=== PATIENT | female | born 1945 | race Caucasian/White ===

== ENCOUNTER → 2017-08-06 | Outpatient (CLI) | payer MEDICARE, OTHER ==
[~2017-08-06] MED LIST: ALLEGRA180 MG PO; AMITRIPTYLINE H10 M1 PO; ARIMIDEX PO; ASPIR 8181 MG PO; ATORVASTATIN CA40 MG PO; BAYER CHEWABLE81 MG PO; CALCIUM 500 +1 EAC4; CALCIUM 600 +1 EA11 PO; CELEBREX 200 M200 M1 PO; CELEBREX 200 M200 MG PO; CYMBALTA60 MG PO; DIPHENHIST25 MG PO; DURAGESIC1 EAC2 TOP; DURAGESIC25 MCG/HR TRANSDERM; Duragesic 25 mcg Pat TRANSDERM; ECHINACEA167 MG; ECHINACEA500 MG PO; ELAVIL PO; FENTANYL PA25 MCG/HR TP; FENTANYL PA25 MCG/HR TRANSDERM; FISH OIL 1,2001 EAC4 PO; FISH OIL SOFTG1 EACH; FLAXSEED1000 MG PO; FLEXERIL PO; FUROSEMIDE 20 M20 M1 PO; GARLIC OIL1 EACH PO; GARLIC OIL1000 MG PO; GINKGO BILOBA120 MG PO; HYDROCHLOROTHIA25 M1 PO; HYDROCODON-ACE1 EAC5 PO; HYDROCODON-ACE1 EAC7 PO; HYDROCODON-ACE1 EAC8 PO; HYDROCODONE-AP1 EAC6 PO; KLOR-CON 10 ER10 MEQ PO; LISINOPRIL20 MG PO; LOPRESSOR25 PO; MOBIC15 MG PO; MULTIVITAMINS; MULTIVITAMINS PO; NEURONTIN 300300 M1 PO; NEURONTIN600 MG PO; NITROGLYCERIN0.4 MG SUBLING; NORCO 10-325 T1 EACH PO; PLAVIX 75 MG TA75 M1 PO; PLAVIX 75 MG TA75 MG PO; POTASSIUM GLUCO90 MG; PRILOSEC 20 MG20 MG PO; TOPROL XL100 MG PO; TRAMADOL 50 MG50 MG PO; VITAMIN D31000 UNI2 PO; VITAMIN E400 UNIT PO; VITAMINC500 PO; VITCB500GO PO; VOLTAREN100 GM TP; XALATAN2.5 ML OPHTHALMIC
--- NOTE | 2017-08-08 09:59 | PAINCON ---
[address] [address] PAIN MANAGEMENT CONSULTATION Name: MONA MIXON Room: [facility]#: [id number] Admission: 08/06/17 Attend Phys: Renetta Nair Discharge: Date of : 47 Report #: [id number] THIS REPORT FOR: //name// CC: Aniya Cardozo DATE OF SERVICE: 08/06/2017 The patient is a 72-year-old female being treated for lumbar radiculopathy status post decompressive laminectomy, chronic pain syndrome requiring high risk complex medication management. Comorbidities include atherosclerotic peripheral vascular disease, coronary artery disease, status post endovascular stent, on Plavix; and osteoporosis. Last visit 06/11/2017, the patient was continued on baseline medication including Duragesic 25 mcg q.72 hours and hydrocodone 5/325 one tablet 3-4 times a day, limit 100 tablets for 30 days. We reviewed the fact that opiate medications are being used to provide analgesia adequate to support activities of daily living, not attempting to achieve a specific pain score on the 0-10 Visual Analog Scale. The current opiate medications are providing sufficient analgesia to allow the patient to participate in activities of daily living. The patient is not exhibiting any aberrant behavior suggestive of drug diversion. The patient is not having any adverse reactions to medications. The patient is not suffering from daytime somnolence or mental acuity changes. The patient is managing opiate-induced constipation with appropriate ffdt-bll-xzbtoav agents and dietary considerations. The patient was counseled on concern for caution with operating a motor vehicle while using opiate medications. A physical exam was performed and the patient's functional status was evaluated. All patients with back pain were advised against the bed rest greater than 4 days and were advised to return to normal activities. Pain score assessment was noted and the treatment plan was reviewed with the patient. All current medications, both prescribed and OTC were reviewed and reconciled on the electronic medical record. Tobacco screening was accomplished and smoking cessation was advised when indicated. BMI was noted and diet/exercise modification was recommended for all patients following outside normal parameters. I reviewed with the patient today their responsibilities to safeguard prescription medications, reviewed their responsibility to utilize medications only as prescribed by the physician. They are to seek and receive pain medications only from 1 physician group ( [facility]). They are to use 1 pharmacy and keep the clinic informed if they change pharmacies. Their responsibilities include making followup visits in a timely [place] [address] PAIN MANAGEMENT CONSULTATION Name: MONA MIXON Room: [facility]#: [id number] Admission: 08/06/17 Attend Phys: Renetta Nair Discharge: Date of : 47 Report #: [id number] abrupt discontinuation of medication usage. Their responsibilities further include bringing their medications (bottles from the pharmacy with residual pills) to the visit for possible confirmation of pill counts and the patient understands it is their responsibility to submit to random drug screens to ensure both that the medications prescribed are present, and that no other controlled substances are present. All prescriptions provided today were generated electronically. The patient returns to pain clinic today noting her is terminally ill. He is currently on hospice at home. With increased physical activity caring for him, changing his adult diapers and trying to care for some sacral decubiti, physical activity has increased and pain has increased somewhat, though she rates her pain 4 on a VAS. PHYSICAL EXAMINATION: Relatively unchanged, pleasant 72-year-old female, appearing somewhat younger than stated age, 5 feet 4 inches, 161 pounds, BMI is 27.8 kg/m2, blood pressure 166/37, pulse is 54, respirations 16. Alert and oriented to person, place and time, judged to be a reasonable historian. Notes pain is primarily low back, left greater than right leg and right hip. Rises from chair using armrest. Gait is modestly antalgic, though tandem. Lower extremity strength is generally symmetric. Modestly positive straight leg raise on the left. Diffuse tenderness across the low back. No discrete trigger points are noted. ASSESSMENT: Lumbar radiculopathy status post decompressive laminectomy, chronic pain syndrome requiring high risk complex medication management. The patient is anticoagulated on Plavix secondary to coronary artery disease. She does take Celebrex 200 mg once daily. She assures me that she has consulted with her cleat maker and he is aware that she is taking Celebrex and he is "okay" with her using this agent concurrent with the coronary artery disease and Plavix. Otherwise, we will renew the patient's tramadol 50 mg 1 tablet 3-4 times a day, limit 100 tablets for 30 days; renew hydrocodone 5/325 one tablet 2-3 times a day, limit 75 tablets. Renew Duragesic 25 mcg q.72 hours. We will renew gabapentin 600 mg 1 in the morning and 2 at night. Discharged in good and stable condition. We did get a buccal drug swab today. No aberrant behavior suggestive for drug diversion, simply complying with our opiate consent to treat contract. <ELECTRONICALLY SIGNED> By: Landon Cardozo, 08/08/17 0959 0930 [facility] Hospitalcindy Cardozo DO /nt
== END ==
LOC: M.PC 02:31
DX: M54.16 Radiculopathy, lumbar region (principal); G89.4 Chronic pain syndrome; I73.89 Other specified peripheral vascular diseases; I25.10 Atherosclerotic heart disease of native coronary artery without angina pectoris; M81.0 Age-related osteoporosis without current pathological fracture; Z79.899 Other long term (current) drug therapy; Z95.828 Presence of other vascular implants and grafts; Z98.890 Other specified postprocedural states; Z79.01 Long term (current) use of anticoagulants

== ENCOUNTER 2017-09-30 19:55 | Observation (INO) | payer MEDICARE, OTHER ==
[~2017-09-30] VITALS: Ht 160 cm; Wt 72.1 kg
[~2017-09-30 19:55] MED LIST changes: -Duragesic 25 mcg Pat TRANSDERM; -LOPRESSOR25 PO; -XALATAN2.5 ML OPHTHALMIC
[2017-09-30 20:15] VITALS: BP 208/79
[2017-09-30 20:50] LABS: ABSOLUTE EOSINOPHILS 0.1 thou/uL (0.0-0.7); ABSOLUTE LYMPHOCYTES 1.4 thou/uL (0.8-5.3); ABSOLUTE MONOCYTES 0.4 thou/uL (0.0-1.2); BASOPHILS 0.4 %; EOSINOPHILS 2.1 %; HEMATOCRIT 37.9 % (37.0-47.0); HEMOGLOBIN 12.9 gm/dL (12.0-15.0); LYMPHOCYTES 34.9 %; MCH 31.3 pg (26.0-34.0); MCV 91.9 fL (80.0-100.0); MONOCYTES 10.2 %; MPV 7.5 fl. (7.2-11.1); NUCLEATED RBCS 0 /100WBC; PLATELET COUNT* 161 thou/uL (150-400); POLYS 52.4 %; RBC 4.12 mil/uL (4.20-5.00); RDW-CV 14.6 % (10.5-14.5); WBC 3.9 thou/uL (4.0-11.0)
[2017-09-30 21:00] LABS: ANION GAP 11 mmol/L (7-16); BUN 14 mg/dL (7-18); CHLORIDE 103 mmol/L (98-107); CO2 28 mmol/L (21-32); CREATININE 0.8 mg/dL (0.6-1.3); GLUCOSE 98 mg/dL (70-99); POTASSIUM 3.8 mmol/L (3.5-5.1); SODIUM 142 mmol/L (136-145)
[2017-09-30 21:04] LABS: APTT 26.9 Seconds (25.0-31.3); INR 1.2; PROTIME 11.2 Seconds (9.20-11.50)
[2017-09-30 21:11] LABS: ALBUMIN 3.8 g/dL (3.4-5.0); ALKALINE PHOSPHATASE 54 U/L (46-116); NT-PRO BRAIN NAT PEPTIDE 1367 pg/mL (<300); SGOT 27 U/L (15-37); SGPT 38 U/L (30-65); TOTAL BILIRUBIN 0.8 mg/dL (<0.1-1.0); TOTAL PROTEIN 7.2 g/dL (6.4-8.2); TROPONIN-I LEVEL <0.06 ng/mL (<0.06)
[2017-09-30 21:51] VITALS: BP 169/68
[2017-09-30 22:15] VITALS: BP 175/64
[2017-09-30] MEDS ORDERED: XALATAN2.5 ML OPHTHALMIC (22:26)
[2017-10-01] VITALS: BP 166/73
--- NOTE | 2017-10-01 03:33 | NUR ---
ASSUMED PT CARE AT 2214, PT IS A&OX4, PT WAS ADMITTED FOR CHEST PAIN, PT TOOK ONE NITRO AT HOME WITH START OF MIDSTERNAL CHEST OAIN/PRESSURE. THIS RELIEVED THE PAIN, PT CAME TO ER, NO PAIN AND WAS ADMITTED. PT IS TRACING NSR/SB ON THE MONITOR, ON RA,SATTING MID TO HIGH 90'S. PT IS NPO AT THIS TIME FOR PENDING CARDIOLOGY CONSULT. PT IS UP WITH ONE TO THE BR WITH HER CANE FROM HOME. SOME HOME MEDICATIONS RETSARTED PER PT REQUEST. PRN HYDRALIZINE GIVEN PER SEP. BED IN LOW POSITION, CALL LIGHT IN REACH, BED ALARM ON. HOURLY ROUNDING COMPLETED FOR PT SAFETY.
[2017-10-01 04:00] VITALS: BP 134/62
[2017-10-01 08:00] VITALS: BP 135/78
[2017-10-01 09:02] LABS: CHOLESTEROL 146 mg/dL (<200); HDL CHOLESTEROL 69 mg/dL (>40); LDL CHOLESTEROL 60 mg/dL (<100); TC:HDL 2.1 Ratio (Not establshd); TRIGLYCERIDE 86 mg/dL (<150); VLDL 17 mg/dL (<40)
[2017-10-01 09:03] LABS: SERUM ASSESSMENT Clear
--- NOTE | 2017-10-01 10:45 | EKG ---
[place] [address] ELECTROCARDIOGRAM REPORT Name: MONA MIXON Room: [address] ADM IN .R.#: [id number] Admission: 09/30/17 Attend Phys: Day Villa MD Discharge: Date of : 47 Report #: [id number] THIS REPORT FOR: //name// [facility] ED Test Date: 2017-09-30 Test Time: 19:59:14 Pat Name: MONA MIXON Department: Room: [facility] Gender: F Package Car Driver: STANLEY : 1945 Requested By: Aurea Kimble Order Number: [id number] MD: Kaushal José Measurements Intervals [place] Rate: 60 P: 77 FL: 145 QRS: 35 QRSD: 119 T: 63 QT: 460 QTc: 460 Interpretive Statements Sinus rhythm Ventricular bigeminy Left ventricular hypertrophy Nonspecific T abnrm, anterolateral leads Compared to ECG 07/25/2016 13:05:11 Ventricular premature complex(es) now present Electronically Signed On 10-01-2017 10:45:35 GM MOBILE by Kaushal José [email or web address] <ELECTRONICALLY SIGNED> By: Kaushal José MD, [facility] 10/01/17 1045 58 58 Kaushal José MD, [facility] /EPI
--- NOTE | 2017-10-01 10:46 | EKG ---
[place] [address] ELECTROCARDIOGRAM REPORT Name: MONA MIXON Room: [address] ADM IN .R.#: [id number] Admission: 09/30/17 Attend Phys: Day Villa MD Discharge: Date of : 47 Report #: [id number] THIS REPORT FOR: //name// [facility] ED Test Date: 2017-09-30 Test Time: 21:59:15 Pat Name: MONA MIXON Department: Room: [facility] Gender: Senior Database Engineer: HOWIE Ann : 1945 Requested By: Siva Lauren Order Number: [id number] MD: Kaushal José Measurements Intervals [place] Rate: 48 P: 105 FL: 156 QRS: 32 QRSD: 98 T: 105 QT: 510 QTc: 456 Interpretive Statements Sinus rhythm Ventricular trigeminy Probable left atrial enlargement RSR' in V1 or V2, probably normal variant LVH w/ repol abnormalities, possible ischemia Electronically Signed On 10-01-2017 10:46:42 DIRECTOR OF STRATEGIC MARKETING by Kaushal José [email or web address] <ELECTRONICALLY SIGNED> By: Kaushal José MD, FAC 10/01/17 1046 2159 2159 Kaushal José MD, [facility] /EPI
[2017-10-01 11:43] VITALS: BP 134/71
--- NOTE | 2017-10-01 12:06 | NUR ---
ASSUMED CARE OF PATIENT THIS AM AT 0730. PATIENT IS ALERT AND ORIENTED X 4. SHE DENIES CHEST PAIN THIS AM. PATIENT KEPT NPO FOR CARDIOLOGY CONSULT. CARDIOLOGY IN TO ROUND THIS AM. ORDERS WRITTEN TO HAVE A STRESS TEST TODAY. PATIENT IS RESTING AT THIS TIME. TELE SHOWS SINUS MARY WITH BIGEMINY PVCS.
--- NOTE | 2017-10-01 12:20 | NUR ---
MET WITH PT TO DISCUSS HOME SITUATION/DC PLANNING. PT LIVES ALONE. HER SPOUSE SEP 01. FACE SHEET UPDATED. PT STATES HER CHILDREN ARE SUPPORTIVE. PT IS INDEPENDENT, USES NO EQUIPMENT. DENIES ANY DC NEEDS. WILL FOLLOW
--- NOTE | 2017-10-01 16:10 | CARDNUC ---
[place] [address] CARDIAC NUCLEAR IMAGING REPORT Name: MONA MIXON Room: [address] IN [facility]#: [id number] Admission: 09/30/17 Attend Phys: Day Villa, Discharge: Date of : 47 Date of Service: 10/01/17 1609 Report #: [id number] THIS REPORT FOR: //name// APPROVED REPORT Exam: Nuclear Stress Test Indication: Chest pain, Dyspnea, Palpitations Patient Location: In-Patient Stress Tech: Yvette Stress Nurse: Olga Mcpherson RN NM Tech:KERA Villavicencio Ht: 5 ft 3 in Wt: 159 lbs BSA: 1.75 m2 HR: 59 bpm BP: 155/94 mmHg BMI: 28.16 Rhythm: NSR Medical History Medical History: CAD s/p stent, CHF Cardiac Risk Factors: Hyperlipidemia, HTN, PVD Previous Cardiac Procedures: PCI Stress Test Details HR Resting HR: 59 bpm Max Heart Rate (APMHR): 149 bpm Max HR Achieved: 69 bpm Target HR (85% APMHR): 126 bpm % of APMHR: 46 Recovery HR: 69 bpm HR response to stress: Normal HR response to stress BP Resting BP: 155/94 mmHg Max BP: 123/76 mmHg BP response to stress: Normal blood pressure response to stress. ECG Resting ECG: Sinus Rhythm, NSSTT changes with VPCs Stress ECG: Sinus Rhythm, NSSTT changes with VPCs ST Change: None Arrhythmia: VPC's Recovery ECG: Sinus Rhythm, NSSTT changes with VPCs Recovery ST Change: None Recovery Arrhythmia: [place] [address] CARDIAC NUCLEAR IMAGING REPORT Name: MONA MIXON Room: [address]#: [id number] Admission: 09/30/17 Attend Phys: Day Villa, Discharge: Date of : 47 Date of Service: 10/01/17 1609 Report #: [id number] Clinical Reason for Termination: Completed protocol Stress Symptoms: None Overall Exercise Capacity for Age: Not assessed on pharmacologic stress Stress ECG Conclusion Normal hemodynamic response to pharmacologic stress. Clinical: Non-ischemic Non-diagnostic EKG stress due to failure to attain target HR. NM EXAM: Myocardial Perfusion REST/STRESS Imaging Protocol: Rest Tc-99m/Stress Tc-99m 1 day Resting Data Rest SPECT myocardial perfusion imaging was performed in supine position 70 minutes following the intravenous injection of 11.1 mCi of Tc-99m Sestamibi. Time of rest injection: 1130 Time of rest imagin The images were gated to evaluate regional wall motion and calculate left ventricular ejection fraction. Administration Route: IV Administration Site: Right AC Pharmacologic Stress Pharmacologic stress test was performed by injecting Regadenoson 0.4 mg IV push followed by the intravenous injection of 36.0 mCi of Tc-99m Sestamibi. Time of stress injection: 1325 Time of stress imagin Administration Route: IV Administration Site: Right AC Heart Rate at time of stress injection: 69 bpm. Gated Stress SPECT was performed 50 minutes after stress injection. The images were gated to evaluate regional wall motion and calculate left ventricular ejection fraction. Prone imaging was performed. Study Quality Study: Good Artifact: Mild Soft tissue attenuation artifact Lung Uptake: [place] [address] CARDIAC NUCLEAR IMAGING REPORT Name: MONA MIXON Room: [address]#: [id number] Admission: 09/30/17 Attend Phys: Day Villa, Discharge: Date of : 47 Date of Service: 10/01/17 1609 Report #: [id number] At rest, the left ventricular ejection fraction was 84%.. Post stress, the left ventricular ejection was 80%.. TID = 1.01. Perfusion The resting study demonstrated a small mild lateral defect. There was also a small mild inferior defect. There is excessive bowel uptake seen on all the images. The post stress study was unchanged from that seen at rest. The studies described above. Prone images were also obtained and there was also no change in the study compared to the resting study. That is there was a small mild lateral defect and a small mild inferior defect. Again there was excessive bowel uptake. There is therefore no reversible defect and no evidence of myocardial ischemia. The fixed defect are likely due to attenuation artifact. Given the lack of wall motion abnormality this unlikely that there is an infarct present. Images were reviewed using BrightContext. Wall Motion Normal left ventricular wall motion. Nuclear Conclusion ECG Findings: non-diagnostic Clinical Findings: negative for ischemia Nuclear Findings: negative for ischemia Exercise Capacity: not assessed Left Ventricular Function: normal Risk Study: low Normal study. No scintigraphic evidence for myocardial ischemia or scar. <Conclusion> Normal hemodynamic response to pharmacologic stress. Clinical: Non-ischemic Non-diagnostic EKG stress due to failure to attain target HR. <ELECTRONICALLY SIGNED> By: Felicitas Venegas MD, FACC 10/01/17 1609 1609 1609 Felicitas Venegas MD, FACC /INF
[2017-10-01 17:00] VITALS: BP 156/59
[2017-10-01 18:58] VITALS: BP 156/59
--- NOTE | 2017-10-02 17:48 | CON ---
[address] [address] CONSULTATION Name: APURVAMONA Amairani Room: [address] [place]#: [id number] Admission: 09/30/17 Attend Phys: Day Villa MD Discharge: 10/01/17 Date of : 47 Report #: [id number] THIS REPORT FOR: //name// CC: Aniya Villa DATE OF SERVICE: 10/01/2017 HISTORY OF PRESENT ILLNESS: The patient is a 72-year-old single white female with a history of coronary artery disease who was admitted last night complaining of chest pain. The patient has had multiple hospitalizations here at [facility]. She has chronic back pain, has been to the pain clinic. She actually presented in 2012 with chest pain and shortness of breath. She was seen by Dr. Venegas at that time. Echocardiogram showed an ejection fraction of 60%. Nuclear stress test in 2012 showed no evidence of ischemia. She then presented in June 2016, complaining of chest tightness. I actually saw her in consultation. I performed a cardiac catheterization. She failed her Horace's test, therefore the angiogram was performed from the right femoral artery. Results showed normal left ventricular function. There was a 50% narrowing of the LAD, 70% narrowing of the mid LAD, 60% narrowing of the circumflex, the right coronary had proximal 70% stenosis. I then placed drug-eluting stents in the proximal and mid right coronary artery. She has actually done fairly well since that time. However, she is not very active because of chronic back pain. She has been under a lot of stress recently because her recently of prostate cancer. She ambulates with a cane. Recently, she has had increasing shortness of breath. She denied any fever, cough, or edema. Yesterday, she was at home when she felt some discomfort in her chest, that went into her head. She felt diaphoretic. She took a nitroglycerin that seemed to help. She was brought to the hospital and admitted. She did note her heart was beating fast, she has had no recent syncope. Recently, she complained of feeling fatigued. She has had a recent trauma to her chest. She denied the pain being related to food. She has had no bleeding or rash on her chest. PAST MEDICAL HISTORY: Otherwise significant for breast surgery followed by radiation therapy for breast cancer. She has had back surgery, right carotid endarterectomy, hypertension, and hyperlipidemia. MEDICATIONS: Consists of amitriptyline, aspirin, Lipitor, fentanyl patch, furosemide for edema, hydrocodone for chronic back pain, omeprazole, potassium, and tramadol. ALLERGIES: She has no known drug allergies. FAMILY HISTORY: Her brother had coronary [place] [address] CONSULTATION Name: MONA MIXON Room: [address] [place]#: [id number] Admission: 09/30/17 Attend Phys: Day Villa MD Discharge: 10/01/17 Date of : 47 Report #: [id number] SOCIAL HISTORY: She is , lives in [place]. Quit smoking years ago, rarely drinks alcohol. REVIEW OF SYSTEMS: She has had no history of stroke or asthma. She has had a peptic ulcer in the past. No liver disease. No kidney disease. She has been told she had neuropathy in the past. No chronic skin condition. PHYSICAL EXAMINATION: GENERAL: Revealed an elderly female, lying in bed, she appeared in no distress. VITAL SIGNS: Blood pressure was 160/70, pulse 60. She was afebrile. HEENT: She was anicteric. Conjunctivae are pink. Mucous membranes are moist. NECK: Veins nondistended. No carotid bruits. CHEST: Clear to auscultation. HEART: Regular rate and rhythm. ABDOMEN: Soft and nontender. EXTREMITIES: Had no edema. Dorsalis pedis pulse cannot be palpated. SKIN: Cool and dry. NEUROLOGIC: Nonfocal. LYMPH: No adenopathy. MUSCULOSKELETAL: No joint effusion. PSYCHIATRIC: Mood appeared depressed. Her ECG on admission last night showed a sinus rhythm, occasional PVCs. There was no ST or T-wave change. Her workup last night, she had portable chest x-ray that showed cardiomegaly, scoliosis, atelectasis. Previous lab work done last night, sodium 142, creatinine 0.8. Troponins all 0.06. White blood cell count 3.9, hemoglobin 12.9. IMPRESSION AND RECOMMENDATIONS: 1. Chest pain. Possible angina. Recommend nuclear stress test. 2. Coronary artery disease. Previous stents placed over a year ago. 3. Hypertension. The patient has been on a beta nelsy. 4. Hyperlipidemia. The patient is on a statin drug. 5. History of breast cancer. 6. Chronic back pain. The patient goes to the pain clinic. 7. Previous carotid endarterectomy. The patient is followed by Dr. Painting. 8. Evidence of peripheral artery disease. It is unclear whether her leg pain represents claudication or neuropathy. <ELECTRONICALLY SIGNED> By: Kaushal José MD, [facility] 10/02/17 1748 0909 1058David Guicho José MD, [facility] /nt
[2017-10-08] MEDS ORDERED: HYDROCODON-ACE1 EAC7 PO (08:50)
[2017-10-08] MEDS ORDERED: NEURONTIN600 MG PO (08:50)
[2017-10-08] MEDS ORDERED: TRAMADOL 50 MG50 MG PO (08:50)
[2017-10-08] MEDS ORDERED: HYDROCODONE-AP1 EAC6 PO (08:50)
[2017-10-08] MEDS ORDERED: AMITRIPTYLINE H10 M1 PO (08:50)
[2017-10-08] MEDS ORDERED: DURAGESIC25 MCG/HR TRANSDERM ×2 (08:50)
[2017-12-03] MEDS ORDERED: HYDROCODON-ACE1 EAC7 PO (08:50)
[2017-12-03] MEDS ORDERED: DURAGESIC25 MCG/HR TRANSDERM ×2 (08:50)
[2017-12-03] MEDS ORDERED: HYDROCODONE-AP1 EAC6 PO (08:50)
[2017-12-04] MEDS ORDERED: LOPRESSOR25 PO (11:46)
[2018-02-17] MEDS ORDERED: HYDROCODONE-AP1 EAC6 PO (09:05)
[2018-02-17] MEDS ORDERED: TRAMADOL 50 MG50 MG PO (09:05)
[2018-02-17] MEDS ORDERED: NEURONTIN600 MG PO (09:05)
[2018-02-17] MEDS ORDERED: ATORVASTATIN CA40 MG PO (09:05)
[2018-02-17] MEDS ORDERED: AMITRIPTYLINE H10 M1 PO (09:05)
[2018-02-17] MEDS ORDERED: DURAGESIC25 MCG/HR TRANSDERM ×2 (09:05)
[2018-02-17] MEDS ORDERED: HYDROCODON-ACE1 EAC7 PO (09:05)
[2018-02-19] MEDS ORDERED: NEURONTIN600 MG PO (15:23)
[2018-02-19] MEDS ORDERED: DURAGESIC25 MCG/HR TRANSDERM ×2 (15:23)
[2018-02-19] MEDS ORDERED: TRAMADOL 50 MG50 MG PO (15:23)
[2018-02-19] MEDS ORDERED: HYDROCODONE-AP1 EAC6 PO (15:23)
[2018-02-19] MEDS ORDERED: AMITRIPTYLINE H10 M1 PO (15:23)
[2018-02-19] MEDS ORDERED: HYDROCODON-ACE1 EAC7 PO (15:23)
[2018-02-19] MEDS ORDERED: ATORVASTATIN CA40 MG PO (15:23)
[2018-03-19] MEDS ORDERED: TRAMADOL 50 MG50 MG PO (08:02)
[2018-03-19] MEDS ORDERED: HYDROCODONE-AP1 EAC6 PO (08:02)
[2018-03-19] MEDS ORDERED: NEURONTIN600 MG PO (08:02)
[2018-03-19] MEDS ORDERED: HYDROCODON-ACE1 EAC7 PO (08:02)
[2018-03-19] MEDS ORDERED: DURAGESIC25 MCG/HR TRANSDERM ×2 (08:02)
[2018-03-19] MEDS ORDERED: ATORVASTATIN CA40 MG PO (08:02)
[2018-03-19] MEDS ORDERED: AMITRIPTYLINE H10 M1 PO (08:02)
[2018-03-19] MEDS ORDERED: CELEBREX 200 M200 M1 PO (09:35)
[2018-03-19] MEDS ORDERED: CELEBREX 200 M200 MG PO (09:44)
[2018-05-28] MEDS ORDERED: NEURONTIN600 MG PO (08:20)
[2018-05-28] MEDS ORDERED: TRAMADOL 50 MG50 MG PO (08:20)
[2018-05-28] MEDS ORDERED: HYDROCODON-ACE1 EAC7 PO ×3 (08:20→11:07)
[2018-05-28] MEDS ORDERED: AMITRIPTYLINE H10 M1 PO ×3 (08:20→10:39)
[2018-05-28] MEDS ORDERED: ATORVASTATIN CA40 MG PO (08:20)
[2018-05-28] MEDS ORDERED: Duragesic 25 mcg Pat TRANSDERM ×6 (08:20→11:07)
[2018-05-28] MEDS ORDERED: CELEBREX 200 M200 MG PO (08:20)
[2018-05-28] MEDS ORDERED: HYDROCODONE-AP1 EAC6 PO (08:20)
== END 2017-10-01 19:22 | disposition home or self-care (01) ==
LOC: M.ERS 19:55 → M.2W 21:25 → M.TBA-ER 21:25 → M.2W 21:25
PROVIDERS: Internal Medicine; Personal Emergency Response Attendant; ADMIT Internal Medicine
DX: I25.110 Atherosclerotic heart disease of native coronary artery with unstable angina pectoris (principal); I49.3 Ventricular premature depolarization; G89.29 Other chronic pain; I50.32 Chronic diastolic (congestive) heart failure; I16.1 Hypertensive emergency; E78.5 Hyperlipidemia, unspecified; F11.20 Opioid dependence, uncomplicated; G62.9 Polyneuropathy, unspecified; E78.00 Pure hypercholesterolemia, unspecified; Z95.5 Presence of coronary angioplasty implant and graft; Z87.891 Personal history of nicotine dependence; Z79.899 Other long term (current) drug therapy; Z79.82 Long term (current) use of aspirin

== ENCOUNTER → 2017-10-08 | Outpatient (CLI) | payer MEDICARE, OTHER ==
[~2017-10-08] MED LIST changes: +Duragesic 25 mcg Pat TRANSDERM; +LOPRESSOR25 PO; +XALATAN2.5 ML OPHTHALMIC
--- NOTE | 2017-10-09 09:41 | PAINCON ---
[address] [address] PAIN MANAGEMENT CONSULTATION Name: MONA MIXON Room: [facility]#: [id number] Admission: 10/08/17 Attend Phys: Renetta Nair Discharge: Date of : 47 Report #: [id number] THIS REPORT FOR: //name// CC: Aniya Cardozo DATE OF SERVICE: 10/08/2017 HISTORY OF PRESENT ILLNESS: The patient is a 72-year-old female typically treated for lumbar radiculopathy, status post decompressive laminectomy, thoracolumbar scoliosis and spondylosis. Comorbidities include atherosclerotic peripheral vascular disease, coronary artery disease and osteoporosis. She requires complex medication management. Last seen in the pain clinic on 08/06/2017, continued on Duragesic 25 mcg q.72 hours; hydrocodone 5/325 one tablet 2-3 times a day, limit 75 tablets for 30 days; tramadol for breakthrough pain, limit 100 tablets for 30 days and gabapentin 600 mg 1 in the morning, 2 at night. The patient was incidentally seen in [facility] and admitted overnight on 09/30/2017 for chest pain. She has a followup with portrait photographer later this week. Tragically since I last saw her, did pass. He was struggling with prostate cancer for quite some time. The patient was a little tearful talking about this today. She does note pain got a little worse with stress and activity. She does have significant thoracolumbar scoliosis. Pain is in the low back, left leg. Moderately positive straight leg raise on the left. PHYSICAL EXAMINATION: GENERAL: Otherwise unchanged, 72-year-old female, BMI is 27.2 kilograms per meter squared. VITAL SIGNS: Blood pressure 141/68, pulse 52, respirations of 16. MUSCULOSKELETAL: Subjective pain score is anywhere from 3-4 on a VAS. Again, rises from the chair using armrest. Gait is modestly antalgic. Left leg shows moderate strength loss. Positive straight leg raise. Diffuse tenderness in the low back. A fairly significant thoracolumbar scoliosis. We reviewed the fact that opiate medications are being used to provide analgesia adequate to support activities of daily living, not attempting to achieve a specific pain score on the 0-10 Visual Analog Scale. The current opiate medications are providing sufficient analgesia to allow the patient to participate in activities of daily living. The patient is not exhibiting any aberrant behavior suggestive of drug diversion. The patient is not having any adverse reactions to medications. The patient is not suffering from daytime somnolence or mental acuity changes. The patient [place] [address] PAIN MANAGEMENT CONSULTATION Name: MONA MIXON [id number] Admission: 10/08/17 Attend Phys: Renetta Nair Discharge: Date of : 47 Report #: [id number] constipation with appropriate gllt-vky-dknmqak agents and dietary considerations. The patient was counseled on concern for caution with operating a motor vehicle while using opiate medications. A physical exam was performed and the patient's functional status was evaluated. All patients with back pain were advised against the bed rest greater than 4 days and were advised to return to normal activities. Pain score assessment was noted and the treatment plan was reviewed with the patient. All current medications, both prescribed and OTC were reviewed and reconciled on the electronic medical record. Tobacco screening was accomplished and smoking cessation was advised when indicated. BMI was noted and diet/exercise modification was recommended for all patients following outside normal parameters. I reviewed with the patient today their responsibilities to safeguard prescription medications, reviewed their responsibility to utilize medications only as prescribed by the physician. They are to seek and receive pain medications only from 1 physician group ( [facility]). They are to use 1 pharmacy and keep the clinic informed if they change pharmacies. Their responsibilities include making followup visits in a timely fashion and to avoid abrupt discontinuation of medication usage. Their responsibilities further include bringing their medications (bottles from the pharmacy with residual pills) to the visit for possible confirmation of pill counts and the patient understands it is their responsibility to submit to random drug screens to ensure both that the medications prescribed are present, and that no other controlled substances are present. All prescriptions provided today were generated electronically. ASSESSMENT: Lumbar radiculopathy, status post decompressive laminectomy, thoracolumbar scoliosis and spondylosis, requiring complex medication management, stable on baseline medications. RECOMMENDATIONS: Renew Duragesic 25 mcg q.72 hours, hydrocodone 7.5/325 one tablet 2-3 times a day, limit 75 tablets for 30 days. Last visit on 08/06/2017, we did a random buccal swab and positive for prescribed medications. Discharged in good and stable condition. <ELECTRONICALLY SIGNED> By: Landon Cardozo DO 10/09/17 0941 1401 1812Landon Cardozo DO /nt
== END ==
LOC: M.PC 01:45
DX: M47.26 Other spondylosis with radiculopathy, lumbar region (principal); M41.85 Other forms of scoliosis, thoracolumbar region; M47.895 Other spondylosis, thoracolumbar region; Z79.899 Other long term (current) drug therapy

== ENCOUNTER → 2017-12-03 | Outpatient (CLI) | payer MEDICARE, OTHER ==
--- NOTE | 2017-12-08 06:53 | PAINCON ---
[address] [address] PAIN MANAGEMENT CONSULTATION Name: MONA MIXON [id number] Admission: 12/03/17 Attend Phys: Renetta Nair Discharge: Date of : 47 Report #: [id number] THIS REPORT FOR: //name// CC: Aniya Cardozo DATE OF SERVICE: 12/03/2017 PAIN CLINIC NOTE HISTORY OF PRESENT ILLNESS: The patient is a 72-year-old female, long known to the pain clinic, being treated for lumbar radiculopathy status post decompressive laminectomy, thoracolumbar scoliosis and spondylosis without myelopathy, multiple comorbidities including atherosclerotic peripheral vascular disease, osteopenia, requiring complex medication management. Last seen in the pain clinic on 10/08/2017. She will continue on Duragesic 25 mcg q. 72 hours, hydrocodone 5/325 one tablet 2-3 times a day, limit 75 tablets for 30 days, p.r.n. tramadol 100 tablets for 30 days, and gabapentin 600 mg 1 in the morning and 2 at night. In the interval since we last saw her, she has had significant medical history. She was seen for prolonged visit today, greater than 30 minutes was spent reviewing interval history, discussing therapeutic options. At last visit, the patient's had succumbed to cancer and we had spent a good deal of time talking about complicated, grieving, etc. In the interval since we last saw her, she was admitted to [facility] with congestive failure and cardiac arrhythmia. She subsequently had a cardiac pacemaker placed (11/11/2017). She did do some physical therapy and is now walking with a walker. She returns to the pain clinic today noting pain is an 8 on a VAS. Pain is primarily mid to low back. She has some loss of balance due to decreased proprioception in the lower extremities. To her credit, she has been trying to do some exercise and she walks out of her house and up past 2 homes. She notes that this is a slight uphill grade. It takes about 5-10 minutes to this walk. She is doing it at least once or twice a week. We talked about increasing physical activity. I suggest she look for a controlled environment in which to walk 3 or 4 times a week. She notes there is a [employer] located not far from her. She does have a treadmill that she enjoys using; however, this is in her garage which is not air condition. She can only use it for short bit in [place] [address] PAIN MANAGEMENT CONSULTATION Name: MONA MIXON Room: [facility]#: [id number] Admission: 12/03/17 Attend Phys: Renetta Nair Discharge: Date of : 47 Report #: [id number] Otherwise, she notes that Duragesic patch at 25 mcg q. 72 hours and hydrocodone p.r.n. continue to provide some degree of pain control. She understands this will only mitigate pain to some degree. We have spent a great deal of time over the past several years trying to adjust appropriate expectations for "pain control" versus pain "zero on a visual analog scale." PHYSICAL EXAMINATION: Today, shows 5 feet 4 inches, 156 pounds 72-year-old female, BMI is 26 kilograms per meter squared, blood pressure 124/75, pulse 59, and respirations 16. Again, subjective pain score is 8 on a VAS at present, ranges anywhere from 4-8. Rises from chair using armrest, uses a walker to help with balance, though lower extremity strength is generally preserved. Straight leg raise is modestly positive bilaterally. Subjective paresthesia in her feet, though she does have 2-point discrimination. We reviewed the fact that opiate medications are being used to provide analgesia adequate to support activities of daily living, not attempting to achieve a specific pain score on the 0-10 Visual Analog Scale. The current opiate medications are providing sufficient analgesia to allow the patient to participate in activities of daily living. The patient is not exhibiting any aberrant behavior suggestive of drug diversion. The patient is not having any adverse reactions to medications. The patient is not suffering from daytime somnolence or mental acuity changes. The patient is managing opiate-induced constipation with appropriate uuvs-kaw-lhylmli agents and dietary considerations. The patient was counseled on concern for caution with operating a motor vehicle while using opiate medications. A physical exam was performed and the patient's functional status was evaluated. All patients with back pain were advised against the bed rest greater than 4 days and were advised to return to normal activities. Pain score assessment was noted and the treatment plan was reviewed with the patient. All current medications, both prescribed and OTC were reviewed and reconciled on the electronic medical record. Tobacco screening was accomplished and smoking cessation was advised when indicated. BMI was noted and diet/exercise modification was recommended for all patients following outside normal parameters. I reviewed with the patient today their responsibilities to safeguard prescription medications, reviewed their responsibility to utilize medications only as prescribed by the physician. They are to seek and receive pain medications only from 1 physician group ([facility]). They are to use 1 pharmacy and keep the clinic informed if they change pharmacies. Their responsibilities include making followup visits in a timely fashion and to avoid abrupt discontinuation of medication usage. Their responsibilities further include bringing their medications (bottles from the pharmacy with residual pills) to the visit for possible confirmation of pill counts and the patient understands it is their responsibility to submit to random drug screens to ensure both that the medications prescribed are present, and [place] [address] PAIN MANAGEMENT CONSULTATION Name: APURVAMONA Bales [facility] [id number] Admission: 12/03/17 Attend Phys: Renetta Nair Discharge: Date of : 46 Report #: [id number] controlled substances are present. All prescriptions provided today were generated electronically. ASSESSMENT: Chronic axial back pain, thoracolumbar scoliosis and spondylosis, status post lumbar decompressive laminectomy, multiple comorbidities including neuropathic pain requiring complex medication management, history of atherosclerotic peripheral vascular disease, recent implantation of a pacemaker, history of osteopenia. RECOMMENDATIONS: Continue gabapentin 600 mg 1 in the morning and 2 at night, continue Duragesic 25 mcg q. 72 hours, hydrocodone 5/325 one tablet 2-3 times a day, limit 75 tablets for 30 days and p.r.n. tramadol up to 100 tablets for 30 days. I did discuss with the patient that I will be leaving practice in the [place] area. We will endeavor to get a provider through [facility] to continue her management. 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 I will pass on the patient's data to my partners at [facility]. <ELECTRONICALLY SIGNED> By: Landon Cardozo DO 12/08/17 [id number] Homecindy Cardozo DO /nt
== END ==
LOC: M.PC 01:40
DX: M47.895 Other spondylosis, thoracolumbar region (principal); M41.85 Other forms of scoliosis, thoracolumbar region; G89.29 Other chronic pain; Z95.0 Presence of cardiac pacemaker

== ENCOUNTER → 2018-02-02 | Outpatient (CLI) | payer MEDICARE, OTHER ==
[2018-02-02 17:53] LABS: CALCIUM 8.9 mg/dL (8.5-10.1); CREATININE 0.8 mg/dL (0.6-1.3); MAGNESIUM 1.7 mg/dL (1.8-2.4); POTASSIUM 4.1 mmol/L (3.5-5.1)
== END ==
LOC: M.LAB 15:58
DX: Z51.81 Encounter for therapeutic drug level monitoring (principal); I49.3 Ventricular premature depolarization; Z79.899 Other long term (current) drug therapy

== ENCOUNTER → 2018-03-19 | Outpatient (CLI) | payer MEDICARE, OTHER ==
--- NOTE | 2018-03-25 16:41 | PAINCON ---
[address] [address] PAIN MANAGEMENT CONSULTATION Name: YURIANGELIAMONA [facility] FuentesYamil#: [id number] Admission: 03/19/18 Attend Phys: Marla Estrada MD Discharge: Date of : 47 Report #: [id number] THIS REPORT FOR: //name// CC: Aniya Estrada DATE OF SERVICE: 03/19/2018 FOLLOWUP COMPLAINT: Here for medication renewal. FOLLOWUP HISTORY: The patient is a 73-year-old female who has been followed in the pain clinic by Dr. Landon Cardozo. This is my first time visiting with the patient. She has a history of lumbar radiculopathy. She is post-decompression laminectomy. Also, has thoracolumbar spondylosis and other comorbidities, which include atherosclerotic peripheral vascular disease and osteopenia. She has been treated with complex medical management using opioid medications. She has returned today for renewal of her medications. She has a history of vascular problems. She has had a right carotid endarterectomy. She has had some stents placed in her heart. Still has some blockage in the left artery in her neck. Has some pain in her right hip. States that is painful and hughes with certain movements. She hurt her left bicep. Has had mastectomy in the past. Has undergone radiation. Has smoked 1 pack of cigarettes per day for last 40 years. Has had some discomfort, possible ulcer problems in the past. She rates her pain as a 4/10 today. We would like to have her medications of hydrocodone, fentanyl, Tylenol and Celebrex renewed. ALLERGIES: No known drug allergies. CURRENT MEDICATIONS: Amitriptyline 10 mg, Arimidex 1 mg, vitamin C 1000 mg daily, aspirin 81 mg, Lipitor 40 mg, a total of 80 mg daily; calcium, Celebrex 200 mg, vitamin D3, echinacea 500 mg, fentanyl patch 25 mcg q. 72 hours, fish oil, flaxseed oil, Lasix 20 mg, gabapentin 600 mg 1 tablet in the morning and 2 tablets at night, garlic oil, ginkgo biloba 120 mg tablets, hydrocodone 5/325 b.i.d. to t.i.d., Xalatan 0.005% eye drops ophthalmic, Lopressor 25 mg b.i.d., multiple vitamin, nitroglycerin 0.4 sublingual p.r.n., Prilosec 20 mg, total of 40 mg daily; potassium 10 mEq, tramadol 50 mg b.i.d. to t.i.d., vitamin E 400 units. PAST MEDICAL HISTORY: 1. Breast cancer 1997. 2. Left mastectomy May 2012. 3. Spinal fusion 2005. 4. Congestive heart failure. 5. Hypertension. 6. Hypercholesterolemia. 7. [place] [address] PAIN MANAGEMENT CONSULTATION Name: MONA MIXON Room: [facility]#: [id number] Admission: 03/19/18 Attend Phys: Marla Estrada MD Discharge: Date of : 47 Report #: [id number] 8. Neuropathy. PAST SURGICAL HISTORY: Left breast lumpectomy 1997, back surgery 2005, radiation to the breast as well as chemotherapy. SOCIAL HISTORY: The patient is retired. REVIEW OF SYSTEMS: Recent weight changes, night sweats, fatigue, wears glasses, glaucoma, frequent urinations, depression. LABORATORY DATA: No new laboratory values are available at the time of our interview. MRI of the lumbar spine dated 12/07/2011 reveals extensive lumbar spondylosis with fusion seen from L3 through S1. Degenerative disk changes are particularly prominent just above the fused level at L2-L3 with bulging disks and reactive marrow changes associated with facet changes. The findings cause mild stenosis and neural foraminal narrowing, greater on the right. The neural foraminal narrowing are more inferiorly, is greater on the left, associated with a significant left convexity of the lumbar curvature. PAIN CLINIC ASSESSMENT: 1. The patient has osteoarthritic problems with her hands and knees. 2. Height 5 feet 4 inches, weight 154 pounds, BMI is 26. 3. Vital signs: Blood pressure 150/90, heart rate 81, respiratory rate 16, room air saturation 94%, temperature 97.8. 4. Pain intensity /10. 5. Fall risk. The patient has not fallen in the last 3 months. 6. The patient walks with a cane as well as with a walker. 7. Blood thinner. The patient is not on a blood thinning medication. 8. History of hypertension. The patient is not being treated for hypertension. 9. Risk assessment tool. 10. Functional assessment tool. 11. Recreational drug use. The patient denies use of recreational drugs. 12. Tobacco one pack of cigarettes per day 40 years. 13. Alcohol weekly. PHYSICAL EXAMINATION: GENERAL: The patient is a well-developed, well-nourished white female. Appears her stated age. She is alert and oriented x 3. Affect is appropriate. Speech is fluent. HEENT: Normocephalic, atraumatic. Extraocular muscles intact. Sclerae nonicteric. Mucous membranes are moist. NECK: Well-healed scars on the right side indicating carotid endarterectomy, left. The patient states there is still a blockage in this area. LUNGS: Generally clear to auscultation. HEART: Regular rate. ABDOMEN: Nontender. The patient complains of some pain [place] [address] PAIN MANAGEMENT CONSULTATION Name: MONA MIXON Room: [facility]#: [id number] Admission: 03/19/18 Attend Phys: Marla Estrada MD Discharge: Date of : 47 Report #: [id number] right side, feels like there is something "sticking out. Has some pain in her right hip in the middle with some sensation of burning and discomfort in this area. Left bicep is somewhat painful. The patient has had mastectomy on the left side in the past. Has had radiation as well. Low back area without significant scoliosis or kyphosis. The patient has a pacemaker on the right side of her chest. Has a history of irregular heartbeat. Heart beat was regular at the time of our interview. IMPRESSION: 1. Chronic pain syndrome involving the mid and lower back. 2. Breast cancer 1997. 3. Left mastectomy May 2012. 4. Spinal fusion 2005. 5. Congestive heart failure. 6. Hypertension. 7. Hypercholesterolemia. 8. Arthritis. 9. Neuropathy. RECOMMENDATIONS: We discussed treatment options with the patient. At this juncture, we will continue with her current medical regimen of Celebrex and fentanyl patch, hydrocodone, and the patient will follow up in the future as needed. She will call us if she has any concerns. We would like to thank you for letting us participate in her care. We hope she continues to improve. <ELECTRONICALLY SIGNED> By: Marla Estrada MD 03/25/18 1641 [id number] [id number]. Gregg Estrada MD /nt
== END ==
LOC: M.PC 02-04 04:43
DX: M54.5 Low back pain (principal); G89.4 Chronic pain syndrome; I11.0 Hypertensive heart disease with heart failure; I50.9 Heart failure, unspecified; E78.00 Pure hypercholesterolemia, unspecified; M19.90 Unspecified osteoarthritis, unspecified site; G62.9 Polyneuropathy, unspecified; Z79.899 Other long term (current) drug therapy

== ENCOUNTER → 2018-05-13 | Outpatient (CLI) | payer MEDICARE, OTHER | LOC: M.RAD 14:30 | DX: N95.0 Postmenopausal bleeding (principal); M85.80 Other specified disorders of bone density and structure, unspecified site; Z78.0 Asymptomatic menopausal state ==

== ENCOUNTER → 2018-05-28 | Outpatient (CLI) | payer MEDICARE, OTHER ==
--- NOTE | 2018-06-10 16:28 | PAINCON ---
[address] [address] PAIN MANAGEMENT CONSULTATION Name: MONA MIXON [id number] Admission: 05/28/18 Attend Phys: Marla Estrada MD Discharge: Date of : 47 Report #: [id number] THIS REPORT FOR: //name// CC: Aniya Estrada DATE OF SERVICE: 05/28/2018 FOLLOWUP COMPLAINT: Here for medication renewal. FOLLOWUP HISTORY: This is a 73-year-old female who has been followed in the pain clinic. As you recall, she has history of lumbar radiculopathy. She has had decompressive lumbar laminectomy. Also, has some thoracolumbar spondylosis and other comorbidities, which includes atherosclerotic peripheral vascular disease and osteopenia. She has been managed with a complex medication regimen of opioid medications. She finds fentanyl patches are helpful. She has had some problems with right carotid endarterectomy. Has had some stents placed in her heart. Still has some blockage in her left artery in the neck. Has some right hip pain. She has undergone mastectomy with radiation. Smoked cigarettes in the past. Feels that her pacemaker has been helpful. Had a history rate of 20. States that she went to the hospital at . A pacemaker was placed. The raise her rate to above 60. States that overall she is feeling better as a result of this. Rates her pain as 2/10 today. It can rise to the level of an 8 or 9. Still lamenting about her who in August of this year. She has joined the gym. She finds that activity is helpful. She is trying to be less homebound. ALLERGIES: No known drug allergies. CURRENT MEDICATIONS: Amitriptyline 10 mg, Arimidex 1 mg, vitamin C 1000 units, aspirin 81 mg, Lipitor 40 mg, total of 80 mg of Lipitor, calcium, Celebrex 200 mg, vitamin D3, echinacea 500 mg, fentanyl patch 25 mcg every 72 hours, fish oil, flaxseed oil, Lasix 20 mg, gabapentin 600 mg 1 tablet in the morning and 2 tablets at night, garlic oil, ginkgo biloba 120 mg, hydrocodone 5/325 one p.o. b.i.d. to t.i.d., Xalatan 0.005% eye drop ophthalmic, Lopressor 25 mg b.i.d., multivitamins, nitroglycerin 0.4 mg sublingual p.r.n., pravastatin 20 mg, total of 40 mg Prilosec daily, potassium 10 mEq, Toradol 50 mg b.i.d./t.i.d., vitamin E 400 units. PAIN CLINIC ASSESSMENT/PQRS: 1. The patient has osteoarthritic changes in her hands and her knees. She has not been treated for rheumatoid arthritis. 2. Height 5 feet 4 inches, weight 158 pounds, BMI is 28.5. 3. Vital signs: Blood pressure 148/96, heart rate 81, respiratory rate 18, room air saturation 96%, temperature 98.2. 4. Pain intensity 2/10. [address] [place] [address] PAIN MANAGEMENT CONSULTATION Name: MONA MIXON Room: [facility]#: [id number] Admission: 05/28/18 Attend Phys: Marla Estrada MD Discharge: Date of : 47 Report #: [id number] 5. Fall history: The patient has not fallen in the last 3 months. 6. Blood thinner. The patient is not on a blood thinning medication. 7. The patient walks with use of a cane. 8. History of hypertension. The patient is not being treated for hypertension. 9. Risk assessment tool. 10. Functional assessment tool. 11. Recreational drug use. The patient denies use of recreational drugs. 12. Tobacco: The patient smoked 40 years in the past, does not smoking at this juncture. 13. Alcohol: The patient admits to weekly use of alcoholic beverages. PHYSICAL EXAMINATION: GENERAL: The patient is a well-developed, well-nourished white female. Appears her stated age. She is alert and oriented x3. Her affect is appropriate. Speech is fluent. HEAD, EYES, EARS, NOSE, AND THROAT: Normocephalic, atraumatic. Extraocular eye muscles intact. Sclerae nonicteric. Mucous membranes are moist. The patient wears glasses. NECK: The patient with a well-healed scar on the right side indicating carotid endarterectomy on the left. The patient also states that she still has a blockage in the neck area. LUNGS: Clear to auscultation. HEART: Regular heartbeat. Rate 81 today. ABDOMEN: Nontender. The patient does complain of some discomfort on the right side. The patient has pain and discomfort in the right hip in the middle with some sensation of burning discomfort. Left biceps somewhat painful. The patient has had a mastectomy, left side. Has had radiation as well. Low back area without significant scoliosis, kyphosis. The patient has pacemaker on the right side. IMPRESSION: 1. Chronic pain syndrome involving the mid and lower back. 2. Breast cancer in 1997. 3. Left mastectomy in May 2012. 4. Spinal fusion in 2005. 5. Congestive heart failure. 6. Hypertension. 7. Hypercholesterolemia. 8. Arthritis. 9. Neuropathy. RECOMMENDATIONS: We discussed treatment options with the patient. At this juncture, we will continue with her current medical regimen. She feels that her medications are helpful. She has had no problem with the fentanyl patch. I feel that these medications enable her to engage in activities, she would not be able to without their use. She is aware [place] [address] PAIN MANAGEMENT CONSULTATION Name: MONA MIXON Room: [facility]#: [id number] Admission: 05/28/18 Attend Phys: Marla Estrada MD Discharge: Date of : 47 Report #: [id number] problematic and that 72,000 people as a result of overdoses in the last year. She would like to continue with her medications. She will call us if she has any problems. Feels that the gabapentin, Celebrex, [place] and fentanyl were helpful. She will call us if she has any concerns. <ELECTRONICALLY SIGNED> By: Marla Estrada MD 06/10/18 1628 1057 [id number]. Gregg Estrada MD /LEATHA
== END ==
LOC: M.PC 02:49
DX: G89.4 Chronic pain syndrome (principal); M43.20 Fusion of spine, site unspecified; I50.9 Heart failure, unspecified; I10 Essential (primary) hypertension; M19.90 Unspecified osteoarthritis, unspecified site; E78.00 Pure hypercholesterolemia, unspecified; G62.9 Polyneuropathy, unspecified; Z85.3 Personal history of malignant neoplasm of breast

== ENCOUNTER → 2018-06-02 | Outpatient (CLI) | payer MEDICARE, OTHER | LOC: M.RAD 16:22 | DX: R06.02 Shortness of breath (principal); R09.89 Other specified symptoms and signs involving the circulatory and respiratory systems ==

== ENCOUNTER → 2018-08-20 | Outpatient (CLI) | payer MEDICARE, OTHER ==
--- NOTE | ~2018-08-20 | PAINCON ---
[address] [address] PAIN MANAGEMENT CONSULTATION Name: MONA MIXON Room: [facility].#: [id number] Admission: Attend Phys: Marla Estrada MD Discharge: Date of : 47 Report #: [id number] THIS REPORT FOR: //name// CC: Aniya Estrada DATE OF SERVICE: 08/20/2018 CHIEF COMPLAINT: "Here for my medications." HISTORY: The patient is a 73-year-old female who has been followed in the pain clinic because of chronic pain. She has a history of lumbar radiculopathy. She has undergone surgeries in the back and has undergone decompressive lumbar laminectomies. She also has a thoracolumbar spondylosis. Other comorbidities include atherosclerotic peripheral vascular disease and osteopenia. She has been managed on a complex medication management using opioids. She uses fentanyl patches. She has had stents placed in her heart. She still has some blockage in the arteries of the left side of her neck. She has right hip pain. She has undergone mastectomy with radiation. She has a pacemaker placed and feels that this has been helpful. She recently went to [place] with her family. She had some problems with the travel. Had difficulty ambulating in [place]. States that when she went into stores they were not very scooter friendly. There is a lot of difficulty navigating in the stores. States that she had swelling in her ankles after taking the plane ride. Has had pain in the left flank area. Also, she is having some pain and discomfort in the right hip area. Has some neuropathic pain as well. She feels that is what is going on in the left side of her back. There is a burning component to it. ALLERGIES: No known drug allergies. CURRENT MEDICATIONS: Amitriptyline 10 mg, Arimidex 1 mg, vitamin C 1000 units, aspirin 81 mg, Lipitor 40 mg, a total of 80 mg daily; calcium; Celebrex 200 mg; vitamin D3; echinacea 500 mg, fentanyl patch 25 mcg q. 72 hours, fish oil, flax seed, Lasix 20 mg, gabapentin 600 mg 1 tab in the morning and 2 tablets at night, garlic oil, ginkgo biloba 120 mg, hydrocodone 5/325 one p.o. t.i.d., Xalatan 0.05% eye drop ophthalmic, Lopressor 25 mg b.i.d., multivitamin, nitroglycerin 0.4 mg sublingual p.r.n., pravastatin 20 mg, Prilosec, potassium 10 mEq, tramadol 50 mg b.i.d. /t.i.d., vitamin E 400 units. PAIN CLINIC ASSESSMENT/PQRS: 1. The patient has some osteoarthritic changes in the lower portion of her knees and in her hands. She has not been treated for rheumatoid arthritis. 2. Height 5 feet 4 inches, weight 159 pounds, BMI is 29. 3. Vital Signs: Blood pressure 160/119 at a second reading, heart rate 81, respiratory rate 16, room air saturation is 96%, temperature 98.0. [place] [address] PAIN MANAGEMENT CONSULTATION Name: MONA MIXON Room: [facility].#: [id number] Admission: Attend Phys: Marla Estrada MD Discharge: Date of : 47 Report #: [id number] states she has not taken her antihypertensive medication today. 4. Pain intensity score 4/10. 5. Fall history: The patient has not fallen in the last 3 months. 6. Blood thinner. The patient is not on a blood thinning medication. 7. Ambulation. The patient walks with use of a cane. 8. Hypertension. The patient is hypertensive today. States she has taken her medication today and will take when she is home. 9. Risk assessment tool. 10. Functional assessment tool. 11. Recreational drug use. The patient denies use of recreational drugs. 12. Tobacco: The patient smoked 40 years, has not smoked and does not smoke at this juncture. 13. Alcohol: The patient denies use of alcoholic beverages at this juncture. PHYSICAL EXAMINATION: GENERAL: The patient is a well-developed, well-nourished white female. Appears her stated age. She is alert and oriented x 3. Her affect is appropriate. Speech is fluent. HEENT: Normocephalic, atraumatic. Extraocular eye muscles intact. Sclerae nonicteric. Mucous membranes are moist. The patient is wearing glasses. NECK: Without adenopathy or JVD. Has a well-healed scar on the right side of her neck, status post carotid endarterectomy. The patient still has some blockage in the neck area per her report. LUNGS: Clear to auscultation. HEART: Regular rate. ABDOMEN: Nontender, protuberant. Bowel sounds present. EXTREMITIES: Upper extremity muscle strength is judged to be 4/5 for the major muscle groups. The patient complains of some pain and discomfort in her left back area. States it is a burning component. Complains of pain across the right hip iliac area. Also, complains of some generalized pain in her hands down into her knees. States that she has some difficulty standing because of the soreness of her back and hip. IMPRESSION: 1. Chronic pain syndrome involves the mid and lower back. 2. Breast cancer in 1997. 3. Left mastectomy in 05/2012. 4. Spinal fusion in 2005. 5. Congestive heart failure. 6. Hypertension. 7. Hypercholesterolemia. 8. Arthritis. 9. Neuropathy. RECOMMENDATIONS: We discussed treatment options with the patient. We will continue with her current medications. A script [place] [address] PAIN MANAGEMENT CONSULTATION Name: MONA MIXON Room: [facility]#: [id number] Admission: Attend Phys: Marla Estrada MD Discharge: Date of : 47 Report #: [id number] rewritten. She will call us if she has any concerns. A script for Duragesic 25 mcg q. 72 hours, hydrocodone 5 mg 1 p.o. t.i.d., a total of 75 tablets; amitriptyline 10 mg 1-2 tablets, a total of 60 have been written; gabapentin 1 tablet q.a.m. 2 tablets at bedtime of 300 mg. We would like to thank you for letting us participate in her care. We hope she continues to improve. By: [id number]. Gregg Estrada MD /nt
== END ==
LOC: M.PC 09:30
DX: G89.4 Chronic pain syndrome (principal); I10 Essential (primary) hypertension; E78.00 Pure hypercholesterolemia, unspecified; M19.90 Unspecified osteoarthritis, unspecified site; I50.9 Heart failure, unspecified; M43.20 Fusion of spine, site unspecified; G62.9 Polyneuropathy, unspecified; Z85.3 Personal history of malignant neoplasm of breast; Z79.899 Other long term (current) drug therapy; Z90.12 Acquired absence of left breast and nipple

== ENCOUNTER → 2018-10-15 | Outpatient (CLI) | payer MEDICARE, OTHER ==
--- NOTE | ~2018-10-15 | PAINCON ---
[address] [address] PAIN MANAGEMENT CONSULTATION Name: MONA MIXON [id number] Admission: 10/15/18 Attend Phys: Marla Estrada MD Discharge: Date of : 47 Report #: [id number] THIS REPORT FOR: //name// CC: Aniya Estrada DATE OF SERVICE: 10/15/2018 CHIEF COMPLAINT: Pain in the lower back down to the left leg with burning in the left side. HISTORY OF PRESENT ILLNESS: The patient is a 73-year-old female who has been seen in the Pain Clinic in the past because of chronic pain. She has a history of lumbar radicular pain. She has undergone decompressive lumbar surgeries in the past. Also, she has thoracolumbar spondylosis. She has atherosclerotic peripheral vascular disease and osteopenia. She has stents placed in her heart. She has had some blockages in her arteries in the left side of her neck. She has a pacemaker in place. She does have some difficulty ambulating because of her pain and discomfort. She has returned today for renewal of her medications. She is having some mid to low back pain and discomfort. She feels that her right hip has some soreness as well as some burning discomfort. She is here for renewal of her medications. ALLERGIES: No known drug allergies. CURRENT MEDICATIONS: Amitriptyline 10 mg, Arimidex 1 mg, vitamin C 1000 units, aspirin 81 mg, Lipitor 40 mg a total of 80 mg daily, calcium, Celebrex 200 mg, vitamin D3, echinacea 500 mg, fentanyl patch 25 mcg q. 72 hours, fish oil, flaxseed, Lasix 20 mg, gabapentin 600 mg 1 tablet in the morning and 2 tablets at night, garlic oil, ginkgo biloba 120 mg, hydrocodone 5/325 one p.o. t.i.d., Xalatan 0.05% eye drops ophthalmic, Lopressor 25 mg, multivitamins, nitroglycerin 0.4 mg sublingual p.r.n., pravastatin 20 mg, Prilosec, potassium 10 mEq, tramadol 50 mg b.i.d./t.i.d., vitamin E 400 units. PAIN CLINIC ASSESSMENT AND PQRS. 1. The patient has osteoarthritic changes in the lower portion of her knees as well as complaint of hand problems. The patient is not being treated for rheumatoid arthritis. 2. Height 5 feet 4 inches, weight 159 pounds, BMI is 29. 3. Vital signs: Blood pressure 150/103, heart rate 84, respiratory rate 16, room air saturation 96%, temperature 98.0. 4. Pain intensity: 3-4/10. 5. Fall history: The patient has not fallen in the last 3 months. 6. Blood thinner: The patient is not on a blood thinning medication. 7. Ambulation: The patient uses a walker and walks with a cane. 8. Hypertension: The patient is [place] [address] PAIN MANAGEMENT CONSULTATION Name: MONA MIXON Room: [facility]#: [id number] Admission: 10/15/18 Attend Phys: Marla Estrada MD Discharge: Date of : 47 Report #: [id number] 9. Risk assessment tool: Low for opioid use. 10. Functional assessment tool. 11. Recreational drug use: The patient denies use of recreational drugs. 12. Tobacco: The patient smoked 40 years. She has not smoked for years and is not smoking at this juncture. 13. Alcohol: The patient denies use of alcoholic beverages. PHYSICAL EXAMINATION: GENERAL: The patient is a well-developed, well-nourished, white female. She appears her stated age. She is alert and oriented x 3. Affect is appropriate. Speech is fluent. HEENT: Normocephalic, atraumatic. Extraocular eye muscles are intact. Sclerae nonicteric. Mucous membranes are moist. The patient is wearing eyeglasses. NECK: Without adenopathy. Well-healed scar on the right side of her neck, status post carotid endarterectomy. LUNGS: Generally clear to auscultation. HEART: Regular rate. ABDOMEN: Nontender. Bowel sounds present. MUSCULOSKELETAL: Upper extremity muscle strength is judged to be 4/5 for the major muscle groups. The patient complains of pain and discomfort in the lower portion of her back, particularly on the left. She has complaints of a burning component and pain in the right hip iliac area. She has some generalized pain in her hands, generalized pain in her knees, difficulty going from a sitting to a standing position, and soreness in her back and hips. IMPRESSION: 1. Chronic pain syndrome involving mid and lower back. 2. Breast cancer in 1997. 3. Left mastectomy in 05/2012. 4. Spinal fusion in 2005. 5. Congestive heart failure. 6. Hypertension. 7. Hypercholesterolemia. 8. Arthritis. 9. Neuropathy. 10. Peripheral artery disease. RECOMMENDATIONS: We discussed treatment options with the patient. Risks and benefits of opioid medications on a chronic basis were discussed. We realize that these medications can become less effective over a period of time. The patient is aware that addiction can become a problem. She feels that her medications are helpful, they enable her to engage in activities of daily living she would not be able to participate without their use, and she would like to have them continued. A script for Duragesic 25 mcg, amitriptyline 10 mg 2 tablets at bedtime, and gabapentin 600 mg, a total of 3 tablets daily have been written. She will call us if [place] [address] PAIN MANAGEMENT CONSULTATION Name: MONA MIXON Room: [facility]#: [id number] Admission: 10/15/18 Attend Phys: Marla Estrada MD Discharge: Date of : 47 Report #: [id number] We would like to thank you for letting us participate in her care. We hope she continues to improve. By: [id number]. Gregg Estrada MD /adrien
== END ==
LOC: M.PC 04:47
DX: G89.4 Chronic pain syndrome (principal); M54.5 Low back pain; M19.90 Unspecified osteoarthritis, unspecified site; M43.26 Fusion of spine, lumbar region; G62.9 Polyneuropathy, unspecified; I11.0 Hypertensive heart disease with heart failure; I50.9 Heart failure, unspecified; E78.00 Pure hypercholesterolemia, unspecified; I73.9 Peripheral vascular disease, unspecified; Z90.12 Acquired absence of left breast and nipple; Z85.3 Personal history of malignant neoplasm of breast

== ENCOUNTER → 2018-11-20 | Outpatient (CLI) | payer MEDICARE, OTHER | LOC: M.RAD 16:37 | DX: M25.551 Pain in right hip (principal); Z98.890 Other specified postprocedural states ==

== ENCOUNTER → 2018-12-10 | Outpatient (CLI) | payer MEDICARE, OTHER ==
--- NOTE | ~2018-12-10 | PAINCON ---
[address] [address] PAIN MANAGEMENT CONSULTATION Name: APURVAMONA F [facility]#: [id number] Admission: 12/10/18 Attend Phys: Marla Estrada MD Discharge: Date of : 47 Report #: [id number] THIS REPORT FOR: //name// CC: Aniya Estrada DATE OF SERVICE: 12/10/2018 CHIEF COMPLAINT: "Having pain in my low back on the right side. I have a CT to evaluate it. I am having pain in my right hand because of carpal tunnel. I am going to have surgery." HISTORY: The patient is a 73-year-old female who has been followed in the pain clinic because of chronic pain. States that she continues to have pain in the mid portion of her back. She is having some pain on the right side. She has a perception of some movement in the right hip. States that she sometimes can push on this area and there is some movement. She is scheduled to have a CT of her hip. She is unable to undergo an MRI because of her pacemaker placed. She has noted significant problems with her right hand. She generally uses her right hand to dial a phone. She uses a stilus and holds it in her hand. When she does that, she notes pain and discomfort in her hand. Particular in her middle finger there is significant pain. Notes that the pain is worsening and continues to radiate up into her wrist. She states she has had an MRI of the right hand. She feels that her medications are helpful. She is using fentanyl patches because of the use of fentanyl patches her pain has improved. She is using less tramadol. She is using hydrocodone. She is not complaining of congestive heart failure. At this point, she has had congestive heart failure, on 2 occasions. She has scoliosis in her back. She has had back surgeries. She is given a back brace in the past. She stopped wearing it. She is not sure that she would like to have her back evaluated at this juncture for another back brace. She states that wearing the brace is somewhat cumbersome. ALLERGIES: No known drug allergies. CURRENT MEDICATIONS: Amitriptyline 10 mg, Arimidex 1 mg, vitamin C 1000 units, aspirin 81 mg, Lipitor 40 mg, a total of 80 mg daily, calcium, Celebrex 200 mg, vitamin D3, 500 mg, fentanyl patch 25 mcg q. 72 hours, fish oil, flaxseed, Lasix 20 mg, gabapentin 600 mg 1 tablet in the morning and 2 tablets at night, garlic oil, ginkgo biloba 120 mg, hydrocodone 5/325 one p.o. t.i.d., Xalatan 0.05% eye drops ophthalmic, Lopressor 25 mg, multivitamins, nitroglycerin 0.4 mg sublingual, pravastatin 20 mg, Prilosec, potassium 10 mEq, tramadol 50 mg t.i.d., vitamin E 400 units. PAIN CLINIC ASSESSMENT/PQRS: 1. The patient has arthritic changes in her knees [place] [address] PAIN MANAGEMENT CONSULTATION Name: MONA MIXON Room: [facility] Román#: [id number] Admission: 12/10/18 Attend Phys: Marla Estrada MD Discharge: Date of : 47 Report #: [id number] in her hands. She is suffering from carpal tunnel syndrome on the right side. She is not being treated for rheumatoid arthritis. 2. Height 5 feet 4 inches, weight is 158 pounds, BMI is 29. 3. Vital signs: Blood pressure 142/85, heart rate 80, respiratory rate 16, room air saturation 94%, temperature 97.3. 4. Pain intensity 5/10. 5. Fall history: The patient has not fallen in the last 3 months. 6. Blood thinner. The patient is not on a blood thinning medication. 7. The patient ambulates with use of her cane and walker. 8. Hypertension. The patient is being treated for hypertension. 9. Risk assessment tool, low for opioids. 10. Functional assessment tool. 11. Recreational drug use. The patient denies use of recreational drugs. 12. Tobacco: The patient has [id number] smoking history, has not smoked for about the last 5 years. 13. Alcohol: The patient denies use of alcoholic beverages. PHYSICAL EXAMINATION: GENERAL: The patient is a well-developed, well-nourished white female. Appears her stated age. She is alert and oriented x 3. Her affect is appropriate. Speech is fluent. HEENT: Normocephalic, atraumatic. Extraocular eye muscles intact. The patient is wearing glasses. NECK: Without adenopathy or JVD. The patient is status post carotid artery surgery approximately 2013. LUNGS: Generally clear to auscultation. HEART: Regular rate. The patient has a pacemaker in place. ABDOMEN: Nontender. Bowel sounds present. MUSCULOSKELETAL: Upper extremity muscle strength is judged to be 4/5 for the major muscle groups in the upper extremity. The patient has pain in the right hand consistent with carpal tunnel problems. The patient has pain in her back, which she states involves her right hip with a perception of movement. The patient walks with use of a cane. Has scoliosis of her back. IMPRESSION: 1. Chronic pain syndrome, symptoms involving the mid back and lower back. 2. History of breast cancer in 1998. 3. Left mastectomy, in 2011. 4. Spinal fusion in 2005. 5. Congestive heart failure. 6. Hypertension. 7. Hypercholesterolemia. 8. Arthritis. 9. Neuropathy. 10. Peripheral artery disease. 11. Carpal tunnel problems [place] [address] PAIN MANAGEMENT CONSULTATION Name: MONA MIXON Room: [facility]#: [id number] Admission: 12/10/18 Attend Phys: Marla Estrada MD Discharge: Date of : 47 Report #: [id number] 12. Scoliosis. RECOMMENDATIONS: We discussed treatment options with the patient. At this juncture, we will continue with her medications. Overall, she feels that her medications are helpful. She is taking less of the tramadol and hydrocodone medication. She feels that the fentanyl patches are helpful. She feels that she has an ample amount of gabapentin. She continues to take it as prescribed. She has some concerns about her right hand. She is having carpal tunnel. She uses her hand to walk with her cane. She is not sure how well she will do after the surgery. She does not have any problems with congestive heart failure. At this point, not have any problems with her pacemaker. She overall feels that things are going reasonably well. She declines use of an ortho support. She has been given the options at some later date if she chooses to give it a try. We explained the pathophysiology and the problems with spinal stenosis that one can continue to lose height as a result of continued worsening of the scoliosis and have more problems with breathing. She still declines the opportunity to be evaluated for a support. A script for her medications has been written. She will continue with the amitriptyline 10 mg 2 tablets at bedtime p.r.n. hand, Celebrex 200 mg one daily, and fentanyl patches 25 mcg q. 72 hours and the patient will call us if she has any concerns. By: [id number]. Gregg Estrada MD /LEATHA
== END ==
LOC: M.PC 04:59
DX: M19.90 Unspecified osteoarthritis, unspecified site (principal); G56.01 Carpal tunnel syndrome, right upper limb; G89.4 Chronic pain syndrome; G62.9 Polyneuropathy, unspecified; M43.26 Fusion of spine, lumbar region; I11.0 Hypertensive heart disease with heart failure; I50.9 Heart failure, unspecified; E78.00 Pure hypercholesterolemia, unspecified; I73.9 Peripheral vascular disease, unspecified; Z85.3 Personal history of malignant neoplasm of breast; Z90.12 Acquired absence of left breast and nipple

== ENCOUNTER → 2018-12-14 | Outpatient (CLI) | payer MEDICARE, OTHER | LOC: M.CT 13:00 | DX: M16.11 Unilateral primary osteoarthritis, right hip (principal); M85.851 Other specified disorders of bone density and structure, right thigh ==

== ENCOUNTER → 2019-02-04 | Outpatient (CLI) | payer MEDICARE, OTHER ==
[~2019-02-04] MED LIST changes: +NORCO 5-325 TA1 EAC1 PO
--- NOTE | ~2019-02-04 | PAINCON ---
[address] [address] PAIN MANAGEMENT CONSULTATION Name: MONA MIXON [facility] [id number] Admission: 02/04/19 Attend Phys: Marla Estrada MD Discharge: Date of : 47 Report #: [id number] THIS REPORT FOR: //name// CC: Aniya Estrada DATE OF SERVICE: 02/04/2019 CHIEF COMPLAINT: Here for medication renewal. HISTORY: The patient is a 73-year-old female who has been followed in the pain clinic because of chronic pain. Has pain and discomfort in her back as well as down into her leg. States that she is having some pain, which continues to be problematic. She does walk with a cane. States that she has problems with her balance. She has pain in the right hip. States that she saw her orthopedic doctor regarding her hip as well as her hand. She is experiencing carpal tunnel problems in her right hand. She had an EMG and findings were confirmed. She states that she has scheduled surgery for 02/26/2019 for the right hand. She finds that her nonsteroidal anti-inflammatory medication, Celebrex is helpful. She did stop taking it for a while. She became quite dysfunctional. Had pain in her knees, pain in her hands and joints. States that she would cry because the pain was so severe. She has had problems with ulcers in the past. She continues to monitor her GI symptoms. States that her heart doctor would prefer that she not take it, but given the limitation she has, she needs to continue with the medication. She has returned today for a renewal of her medication. She is not having any problems with her fentanyl. She feels that this medication is helping. Feels that the hydrocodone is helping as well. She has had a history of congestive heart failure on 2 occasions. Continues to have problems because of the scoliosis in her back. She has had back surgeries. She has used a back brace in the past, but is not wearing it. Finds that wearing the back brace is cumbersome. ALLERGIES: No known drug allergies. CURRENT MEDICATIONS: Amitriptyline 10 mg, Arimidex 1 mg, vitamin C 1000 units, aspirin 81 mg, Lipitor 40 mg, a total of 80 mg daily, calcium, Celebrex 200 mg, vitamin D 500 mg, fentanyl patch 25 mcg q. 72 hours, fish oil, flaxseed, Lasix 20 mg, gabapentin 600 mg in the morning and 2 tablets at night, garlic oil, ginkgo biloba 120 mg, hydrocodone 5/325 one p.o. t.i.d., Xalatan 0.5% eyedrops, Lopressor 25 mg, multivitamins, nitroglycerin 0.4 mg, sublingual, pravastatin 20 mg, potassium 20 mEq, tramadol 50 mg t.i.d., vitamin E 400 units. PAIN CLINIC ASSESSMENT AND PQRS: 1. The patient has some changes in her knees. She also has some changes in her back. Suffers from carpal tunnel syndrome. She is also suffering from scoliosis. The patient is not being [place] [address] PAIN MANAGEMENT CONSULTATION Name: MONA MIXON Room: [facility]#: [id number] Admission: 02/04/19 Attend Phys: Marla Estrada MD Discharge: Date of : 47 Report #: [id number] 2. Height 5 feet 2 inches, weight 158 pounds, BMI is 28.9. 3. Vital Signs: Blood pressure 138/94, heart rate 84, respiratory rate 16, room air saturation 95%. Temperature 98.2. 4. Pain intensity is 2/10. 5. Fall history: The patient has not fallen in the last 3 months. 6. Blood thinner. The patient is not on a blood thinning medication. 7. The patient ambulates with use of her cane and a walker. 8. Hypertension. The patient is being treated for hypertension. 9. Risk assessment tool, low for opioid use. 10. Functional assessment tool. 11. Recreational drug use. The patient denies use of recreational drugs. 12. Tobacco: The patient has a 93-wmeu-sgsf smoking history, has not smoked for the last 5 years. 13. Alcohol: The patient denies use of alcoholic beverages except once or twice a week. PHYSICAL EXAMINATION: GENERAL: The patient is a well-developed, well-nourished white female. Appears her stated age. She is alert, oriented x 3. Her affect is appropriate. Speech is fluent. HEENT: Normocephalic, atraumatic. Extraocular eye muscles intact. Sclerae nonicteric. The patient is wearing her glasses. NECK: Without adenopathy or JVD. The patient is status post carotid artery surgery approximately in 2013. LUNGS: Generally clear to auscultation. HEART: Regular rate. The patient has a pacemaker in place. ABDOMEN: Nontender. Bowel sounds present. MUSCULOSKELETAL: The patient's upper extremity muscle strength judged to be 4/5 on the left and 4-/5 for the right hand. Has pain because of carpal tunnel. The patient has pain in the lower portion of her back with pain that is radiating down into her right hip. Has scoliosis of her back. IMPRESSION: 1. Chronic pain syndrome involving the mid back and lower back. 2. History of breast cancer in 1998. 3. Left mastectomy in 2011. 4. Spinal fusion in 2005. 5. Congestive heart failure. 6. Hypertension. 7. Hypercholesterolemia. 8. Arthritis. 9. Neuropathy. 10. Peripheral artery disease. 11. Carpal tunnel in the right hand, scheduled to undergo surgery in the near future. 12. [place] [address] PAIN MANAGEMENT CONSULTATION Name: MONA MIXON Room: [facility]#: [id number] Admission: 02/04/19 Attend Phys: Marla Estrada MD Discharge: Date of : 47 Report #: [id number] RECOMMENDATIONS: We discussed treatment options with the patient. At this juncture, we will continue with her medications. She feels her medications are helpful. Feels that the tramadol and the hydrocodone medications are helpful. She continues with the fentanyl patch. She is not having any problems with it. Feels that the gabapentin medication is helpful. She is considering surgery on her right hand on 02/26/2019. She is walking with her cane. She has some concerns about her convalescence after the surgery given difficulty with using her right hand to walk with her cane. She does have some problems with her balance. Overall, things are going reasonably well. She continues to take nonsteroidal anti-inflammatory medication. Does have history of problems with ulcers. Feels that she could not survive without use of the nonsteroidal because of the severity of her hand pain as well as that in her back. She will continue with her medications. A script for her medications has been provided of Celebrex 200 mg 1 p.o. daily, Duragesic 25 mcg q. 72 hours. She will follow up in the future as needed. We would like to thank you for letting us participate in her care. We hope she continues to improve. By: [id number]. Gregg Estrada MD /LEATHA
== END ==
LOC: M.PC 05:13
DX: M41.86 Other forms of scoliosis, lumbar region (principal); I73.9 Peripheral vascular disease, unspecified; I11.0 Hypertensive heart disease with heart failure; I50.9 Heart failure, unspecified; E78.00 Pure hypercholesterolemia, unspecified; M19.90 Unspecified osteoarthritis, unspecified site; G62.9 Polyneuropathy, unspecified; G56.01 Carpal tunnel syndrome, right upper limb; M43.20 Fusion of spine, site unspecified; G89.29 Other chronic pain; Z85.3 Personal history of malignant neoplasm of breast

== ENCOUNTER → 2019-03-01 | Outpatient (CLI) | payer MEDICARE, OTHER ==
[2019-03-01 09:17] LABS: ABSOLUTE EOSINOPHILS 0.1 thou/uL (0.0-0.7); ABSOLUTE LYMPHOCYTES 1.9 thou/uL (0.8-5.3); ABSOLUTE MONOCYTES 0.3 thou/uL (0.0-1.2); BASOPHILS 0.7 %; EOSINOPHILS 3.1 %; HEMATOCRIT 36.6 % (37.0-47.0); HEMOGLOBIN 12.7 gm/dL (12.0-15.0); LYMPHOCYTES 43.1 %; MCH 31.3 pg (26.0-34.0); MCHC 34.6 g/dL (28.0-37.0); MCV 90.5 fL (80.0-100.0); MONOCYTES 6.7 %; MPV 7.3 fl. (7.2-11.1); NUCLEATED RBCS 0 /100WBC; PLATELET COUNT* 187 thou/uL (150-400); POLYS 46.4 %; RBC 4.04 mil/uL (4.20-5.00); RDW-CV 13.5 % (10.5-14.5); WBC 4.4 thou/uL (4.0-11.0)
[2019-03-01 09:35] LABS: CALCIUM 9.5 mg/dL (8.5-10.1); CREATININE 0.8 mg/dL (0.6-1.3); POTASSIUM 4.3 mmol/L (3.5-5.1)
== END ==
LOC: M.LAB 08:54
PROVIDERS: Orthopaedic Surgery
DX: M79.641 Pain in right hand (principal)

== ENCOUNTER → 2019-04-01 | Outpatient (CLI) | payer MEDICARE, OTHER ==
--- NOTE | 2019-04-05 11:25 | PAINCON ---
[address] [address] PAIN MANAGEMENT CONSULTATION Name: APURVAMONA BILLYYE Room: [facility] HER[facility] Román#: [id number] Admission: 04/01/19 Attend Phys: Marla Estrada MD Discharge: Date of : 46 Report #: [id number] THIS REPORT FOR: //name// CC: Aniya Estrada DATE OF SERVICE: 04/01/2019 CHIEF COMPLAINT: Here for medication renewal, it helps about 50%. HISTORY: The patient is a 73-year-old female who has been followed in the pain clinic. As you recall, she has chronic pain involving her back. Has some history of spinal scoliosis. She does walk and use a cane. States that she still has some problem with balance. She has recently seen orthopedic surgeon. She did have carpal tunnel problems in her right hand. These stitches have been out for about a week. Overall, she is having less pain. The pain was radiating up into her arm that has improved since her surgery. She is not having any problems with her nonsteroidal medications. Continues to use omeprazole to help that. She feels that the nonsteroidals are helpful with her pain. Does have some pain and discomfort in her left as well as the right hip. She has pain that radiates down in the right lateral portion of her leg as well as her right hip. This is not very problematic today. She has not used a brace. Does have spinal scoliosis. She is not sure whether or not she would wear a brace. Feels that the hydrocodone and Duragesic patches are quite helpful. Notes that the pain is worse when she is going from a sitting to a standing position, walking up and down stairs and with other activities of daily living. ALLERGIES: No known drug allergies. CURRENT MEDICATIONS: Amitriptyline 10 mg, Arimidex 1 mg, vitamin C 1000 units, aspirin 81 mg, Lipitor 40 mg, a total of 80 mg, calcium, Celebrex 200 mg, vitamin D 500 mg, fentanyl patch 25 mcg q. 72 hours, fish oil, flaxseed, Lasix 20 mg, gabapentin 600 mg in the morning and 2 tablets at night, garlic oil, ginkgo biloba 120 mg, hydrocodone 5/325 one p.o. t.i.d., Xalatan 0.5 mg, eyedrops, Lopressor 25 mg, multivitamins, nitroglycerin 0.4 mg sublingual, pravastatin 20 mg, potassium 20 mEq, tramadol 50 mg t.i.d., vitamin E 400 units. PAIN CLINIC ASSESSMENT/PQRS: 1. The patient has some changes in her knees. Suffers from spinal scoliosis. The patient is not being treated for rheumatoid arthritis. 2. Height 5 feet 2 inches, weight 157 pounds, BMI is 28.8. 3. Vital signs: Blood pressure 148/93, heart rate 81, respiratory rate 18, room air saturation is 94%, temperature 98.0. 4. Pain intensity 5/10. 5. Fall history: The patient has not fallen in the last 3 months. 6. Blood thinner. The patient is not on a blood thinning medication. [address] [place] [address] PAIN MANAGEMENT CONSULTATION Name: APURVAMONA HOPKINS [id number] Admission: 04/01/19 Attend Phys: Marla Estrada MD Discharge: Date of : 47 Report #: [id number] 7. Hypertension. The patient is being treated for hypertension. 8. Risk assessment tool, low for opioid use. 9. Functional assessment tool. 10. Recreational drug use. The patient denies use of recreational drugs. 11. Tobacco: The patient has a 34-saql-cuyq smoking history. She has not smoked in the last 5 years. 12. Alcohol. The patient denies use of alcoholic beverages except once or twice weekly at the large. PHYSICAL EXAMINATION: GENERAL: The patient is a well-developed, well-nourished white female. Appears her stated age. She is alert and oriented x 3. Affect is appropriate. Speech is fluent. HEENT: Normocephalic, atraumatic. Extraocular eye muscles intact. Sclerae nonicteric. Mucous membranes are moist. The patient is wearing glasses. NECK: Without adenopathy or JVD. The patient is status post carotid artery endarterectomy in 2013. LUNGS: Generally clear. HEART: Regular rate. The patient has a pacemaker. ABDOMEN: Nontender. Bowel sounds present. MUSCULOSKELETAL: The patient has muscle strength in the upper extremity, 4/5 for the left side and 4/5 for the right. Well healing incision on the right hand, status post carpal tunnel surgery. The patient has a history of scoliosis. The patient without significant kyphosis. The patient complains of pain that radiates from her right hip down the lateral portion of her thigh as well as sometimes in the groin area. Feels that her left hip is higher than the right hip. IMPRESSION: 1. Chronic pain syndrome involving the back and lower back area. 2. History of breast cancer in 1998. 3. Left mastectomy in 2011. 4. Spinal fusion 2005. 5. History of congestive heart failure. 6. Hypertension. 7. Hypercholesterolemia. 8. Arthritis. 9. Neuropathy. 10. Peripheral artery disease. 11. Carpal tunnel in the right, status post surgery. With good result in healing. 12. Scoliosis. RECOMMENDATIONS: We discussed treatment options with the patient. At this juncture, we will continue with her medications. She feels medications are helpful. She is aware that opioid medications can become [place] [address] PAIN MANAGEMENT CONSULTATION Name: MONA MIXON Room: [facility]#: [id number] Admission: 04/01/19 Attend Phys: Marla Estrada MD Discharge: Date of : 47 Report #: [id number] goes on. She has taken the medication as prescribed. Feels that the fentanyl patch helps control her pain. She does not have to use hydrocodone as often. She is having no problems with gabapentin and finds it continues to be helpful. She is walking with a cane. She has been provided the option for use of a brace. We explained the pathophysiology of scoliosis which could as a result cause less respiratory reserve. At this juncture, the patient continues to decline the option. We would like to thank you for letting us participate in her care. A script for her medications of Duragesic 25 mcg 1 p.o. q. 72 hours, amitriptyline 10 mg 1-2 tablets at bedtime, 60 tablets, Neurontin 600 mg 1 p.o. q.a.m. and 2 tablets at bedtime. The patient will call us if she has any concerns. We would like to thank you for letting us participate in her care. We hope she continues to improve. <ELECTRONICALLY SIGNED> By: Marla Estrada MD 04/05/19 1125 [id number]. Gregg Estrada MD /nt
== END ==
LOC: M.PC 05:13
DX: G89.4 Chronic pain syndrome (principal); M54.5 Low back pain; M43.20 Fusion of spine, site unspecified; I11.0 Hypertensive heart disease with heart failure; I50.9 Heart failure, unspecified; E78.00 Pure hypercholesterolemia, unspecified; M19.90 Unspecified osteoarthritis, unspecified site; G62.9 Polyneuropathy, unspecified; I73.9 Peripheral vascular disease, unspecified; M41.9 Scoliosis, unspecified; G56.01 Carpal tunnel syndrome, right upper limb; Z85.3 Personal history of malignant neoplasm of breast

== ENCOUNTER → 2019-05-27 | Outpatient (CLI) | payer MEDICARE, OTHER ==
--- NOTE | 2019-06-07 13:25 | PAINCON ---
[address] [address] PAIN MANAGEMENT CONSULTATION Name: MONA MIXON Room: [facility] CamilaZachary#: [id number] Admission: 05/27/19 Attend Phys: Marla Estrada MD Discharge: Date of : 47 Report #: [id number] THIS REPORT FOR: //name// CC: Aniya Estrada DATE OF SERVICE: 05/27/2019 CHIEF COMPLAINT: Here for medication renewal and I had my detached retina repaired. HISTORY: The patient is a 74-year-old female who has been followed in the pain clinic. As you may recall, she has had chronic pain for a number of years. Has pain in her upper back and lower back. It is primarily on the left side. Notes that the pain is worse with certain activities. Pain increases to 10 with activity. Rates her pain as a 3/10 while sitting. Denies any new trauma. She has had a history of problems with her eye. States that she has had torn retina on the left and the right eye in the past. She recently noticed worsening of pain in the right eye. Had difficulty watching television. She consulted her surgeon and was found to have a detached retina. She has now had surgery for this. Overall, things are going reasonably well. She has had no complications. We did discuss use of a brace in the past. At this juncture, she is not on board with getting a brace. She does have spinal scoliosis. She feels that the hydrocodone medication is helpful. Feels that the Duragesic patches continue to be helpful. Overall, things are going reasonably well. Notes pain with standing, climbing stairs, bending and notes her pain improves with rest and medications. The patient has been using aspirin in the past. She has stopped using aspirin at this juncture. Does have some history of GI problems. ALLERGIES: No known drug allergies. CURRENT MEDICATIONS: Amitriptyline 10 mg, Arimidex 1 mg, vitamin C 1000 units, Lipitor 40 mg total of 80 daily, calcium, Celebrex 200 mg, vitamin D 500, fentanyl patches 25 mcg every 72-hours, fish oil, flaxseed, Lasix 20 mg, gabapentin 600 mg in the morning and 2 tablets at night, garlic oil, ginkgo biloba 120 mg, hydrocodone 5/325 one p.o. t.i.d., Xalatan 0.5 mg eyedrops, Lopressor 25 mg, multivitamins, nitroglycerin 0.4 mg sublingual p.r.n., pravastatin 20 mg, potassium 20 mEq, tramadol 50 mg t.i.d. and vitamin E 400 units. PAIN CLINIC ASSESSMENT/PQRS: 1. The patient has some arthritic changes in her knees. Suffers from spinal stenosis. She is not being treated for rheumatoid arthritis. 2. Height 5 feet 9 inches, weight 160 pounds, BMI is 29.0. 3. Vital signs: Blood pressure 158/91, heart rate 83, respiratory rate 16, [facility] [address] [place] [address] PAIN MANAGEMENT CONSULTATION Name: MONA MIXON [id number] Admission: 05/27/19 Attend Phys: Marla Estrada MD Discharge: Date of : 47 Report #: [id number] room air saturation is 94%. 4. Temperature 98.1. Pain score 3/10. 5. Fall history: The patient has not fallen in the last 3 months. 6. Blood thinner. The patient is not on a blood thinning medication. 7. Hypertension. The patient is being treated for hypertension. 8. Risk assessment tool, low for opioid use. 9. Functional assessment tool. 10. Recreational drug use: The patient denies. 11. Tobacco: The patient has a 72-ljwa-futz smoking history. She is not smoking. States that she is vaping with water. She is not using any oil. She is not using nicotine. 12. Alcohol. The patient denies use of alcoholic beverages except once or twice a week. PHYSICAL EXAMINATION: GENERAL: The patient is a well-developed, well-nourished white female. Appears her stated age. She is alert and oriented. Her affect is appropriate. Speech is fluent. She is accompanied by her daughter. HEENT: Normocephalic, atraumatic. Extraocular eye muscles intact. Sclerae right eye is red and injected. Status post detached retinal surgery. NECK: Without adenopathy or JVD. The patient is status post carotid endarterectomy in 2013. LUNGS: Generally clear. HEART: Regular rate. The patient has a pacemaker in place. ABDOMEN: Bowel sounds present. MUSCULOSKELETAL: Upper extremity muscle strength judged to be 4/5 for the major muscle groups in the upper extremity. Lower extremity muscle strength judged to be 4/5 for lower extremity. The patient walks with use of a cane. The patient has scoliosis without significant amount of kyphosis. Complains of some pain that radiates down the right of the lateral portion of her thigh and on the left upper back area. Feels that her left hip is higher than the right hip. IMPRESSION: 1. Chronic pain involving the back and lower back areas. 2. History of breast cancer in 1998. 3. Recent retinal detachments, status post retinal repair. 4. Left mastectomy in 2011. 5. Spinal fusion in 2005. 6. History of congestive failure. 7. Hypertension. 8. Hypercholesterolemia. 9. Arthritis. 10. Neuropathy. 11. Peripheral artery disease. 12. Carpal tunnel on the right, status post surgery. 13. Scoliosis. The patient may consider a brace in [place] [address] PAIN MANAGEMENT CONSULTATION Name: MONA MIXON Room: [facility]#: [id number] Admission: 05/27/19 Attend Phys: Marla Estrada MD Discharge: Date of : 47 Report #: [id number] RECOMMENDATIONS: We discussed treatment options with the patient. At this juncture, she feels her medications are working reasonably well. Notes that her pain increases from 3 while sitting and is relatively inactive to 10 with certain activities. Overall, she feels her medications are helpful. She is taking them as prescribed. She has recently stopped taking aspirin medications. Her physician explained to her that there is a possibility that the aspirin medication might be more problematic than helpful. She will continue with her use of fentanyl 25 mcg every 72 hours. She also continue with hydrocodone 5/325 one p.o. every 4 hours. The patient also finds that Celebrex is helpful. She has had no complications with her medications. Keeps her medications in a guarded area. She is aware that opioid medications for some patients can be problematic. She feels overall the things are going well and has returned today for renewal of her medications. We again had a discussion regarding the benefits of a brace. Hopefully, this would be helpful in decreasing the movement and continued curvature of her spine. She will consider that in the future. We would like to thank you for letting us participate in her care. We hope she continues to improve. <ELECTRONICALLY SIGNED> By: Marla Estrada MD 06/07/19 1325 [id number]. Gregg Estrada MD /nt
== END ==
LOC: M.PC 05:00
DX: G89.29 Other chronic pain (principal); M54.5 Low back pain; M54.6 Pain in thoracic spine; Z85.3 Personal history of malignant neoplasm of breast; M43.20 Fusion of spine, site unspecified; I11.0 Hypertensive heart disease with heart failure; I50.9 Heart failure, unspecified; E78.00 Pure hypercholesterolemia, unspecified; M19.90 Unspecified osteoarthritis, unspecified site; G62.9 Polyneuropathy, unspecified; I73.9 Peripheral vascular disease, unspecified; M41.86 Other forms of scoliosis, lumbar region; G56.01 Carpal tunnel syndrome, right upper limb; Z98.890 Other specified postprocedural states

== ENCOUNTER → 2019-07-15 | Outpatient (CLI) | payer MEDICARE, OTHER ==
--- NOTE | ~2019-07-15 | PAINCON ---
[address] [address] PAIN MANAGEMENT CONSULTATION Name: MONA MIXON [id number] Admission: 07/15/19 Attend Phys: Marla Estrada MD Discharge: Date of : 47 Report #: [id number] THIS REPORT FOR: //name// CC: Aniya Estrada DATE OF SERVICE: 07/15/2019 CHIEF COMPLAINT: "Here for medication renewal and I am having more pain in my low back, left hip. I am having more problems with my scoliosis." HISTORY: The patient is a 74-year-old female who has been followed in the pain clinic because of chronic pain. She finds that her current medical regimen of fentanyl and Celebrex are beneficial. Overall, she feels that her pain is improved by about 50%. She does note that she is having more pain and discomfort as a result of her scoliosis. She is leaning more to the left side. She has some burning in her right hip. States that when she stands up now her hip position has changed such that her feet do not touch the floor evenly anymore. She did have some problems with her vision. She has had a retina detachment. She did undergo surgery in April for this. She will follow up in the coming year in regards to her eye condition. Does have a history of torn retina in the past. She would like to get new glasses after she has been evaluated by her physician. We have had discussion on numerous occasions regarding the benefits of a brace. She feels that she would like to be evaluated for brace. She does have spinal scoliosis. ALLERGIES: No known drug allergies. CURRENT MEDICATIONS: Amitriptyline 10 mg, Arimidex 1 mg, vitamin C 1000 units, Lipitor 40 mg total of 80 mg daily, calcium, Celebrex 200 mg, vitamin D 500 mg, fentanyl patches 225 mcg every 72 hours, fish oil, flaxseed, Lasix 20 mg, gabapentin 600 mg 2 tablets in the morning and at night, garlic oil, Ginkgo Biloba 120 mg, hydrocodone 5/325 one p.o. t.i.d., Xalatan 0.5 mg eyedrops, Lopressor 25 mg, multivitamins, nitroglycerin 0.4 mg sublingual p.r.n., pravastatin 20 mg, potassium 20 mEq, tramadol 50 mg t.i.d., and vitamin E 400 units. PAIN CLINIC ASSESSMENT AND PQRS: 1. The patient has some arthritic changes in her knees. She suffers from spinal stenosis. She is not being treated for rheumatoid arthritis. 2. Height 5 feet 9 inches in the past, 5 feet 2 inches at this juncture. Vital signs: Heart rate is 80, respiratory rate 16, blood pressure 142/84, and temperature 98.2. 3. Pain score 5/10. 4. Fall history: The patient has not fallen in the last 3 [place]. [place] [address] PAIN MANAGEMENT CONSULTATION Name: MONA MIXON Room: [facility]#: [id number] Admission: 07/15/19 Attend Phys: Marla Estrada MD Discharge: Date of : 47 Report #: [id number] 5. Blood thinner. The patient is not on a blood thinning medication. 6. Hypertension. The patient is being treated for hypertension. 7. Risk assessment tool: Low for opioid use. 8. Recreation is low for opioids. 9. Functional assessment tool: The patient's score have been reviewed. 10. Recreational drug use: The patient denies. 11. Tobacco: The patient has a 39-uoxp-apdw smoking history. She is not smoking. The patient was vaping. Denies use of any oil. She is not using nicotine. 12. Alcohol: The patient denies use of alcoholic beverages except about twice weekly. PHYSICAL EXAMINATION: GENERAL: The patient is a well-developed, well-nourished white female. Appears her stated age. She is alert and oriented x 3. Her affect is appropriate. Speech is fluent. She is unaccompanied. HEENT: Normocephalic, atraumatic. Extraocular eye muscles intact. The patient is wearing glasses. States that her right eye surgery was in April for detached retina. Overall, things are going reasonably well. NECK: Without adenopathy or JVD. Post carotid endarterectomy in 2013. LUNGS: Generally clear. HEART: Regular rate. The patient has a pacemaker in place. ABDOMEN: Bowel sounds present. MUSCULOSKELETAL: Upper extremity muscle strength judged to be 4/5 for the major muscle groups in the upper extremity. The patient has lower extremity muscle strength judged to be 4/5 for the lower extremity. She walks with her cane. Has scoliosis without significant kyphosis. Complains of pain that radiates down into her thighs and left upper back area. Notes that her left hip is higher than the right. IMPRESSION: 1. Chronic pain involving the upper back and lower back areas. 2. History of breast cancer in 1998. 3. Recent retinal detachment, status post repair in 04/2019. 4. Left mastectomy in 2011. 5. Spinal fusion in 2005. 6. History of congestive heart failure. 7. Hypertension. 8. Hypercholesterolemia. 9. Arthritis. 10. Neuropathy. 11. Peripheral artery disease. 12. Carpal tunnel on the right side, status post surgery. 13. Scoliosis. The patient will consider scoliosis brace evaluation. RECOMMENDATIONS: We discussed treatment options with the patient. The patient [address] [address] PAIN MANAGEMENT CONSULTATION Name: MONA MIXON Room: [facility] JensenZachary#: [id number] Admission: 07/15/19 Attend Phys: Marla Estrada MD Discharge: Date of : 46 Report #: [id number] feels that her medications are helpful. She is rating her pain as a 5/10 at this point. She feels that her pain medications make things tolerable. She has some pain in her right hip with a burning sensation. Notes that she is beginning to lean more and more to her left. The patient is aware that opioid medications can become less effective as time goes on secondary to development of tolerance. She is not showing any signs of dependency. We again discussed the benefits of a brace. I explained to the patient that over time as she continues to lose volume in her lungs this might become more and more problematic as time goes on. I think that the patient should be evaluated for scoliosis brace. The scoliosis brace is prescribed to reduce pain by restricting mobility of the trunk and supporting deformed areas of the spine to reduce body lean. The patient is not considering having spinal surgery. The patient has tried previous brace, but is not using any longer at this point. We will have the patient be evaluated by the master lay out specialist in regards to fitting for a brace/trial. We would like to thank you for letting us participate in her care. We hope she continues to improve. Thank you very much for proofread my dictation. By: [id number]. Gregg Estrada MD /nt
== END ==
LOC: M.PC 04:46
DX: M54.5 Low back pain (principal); I10 Essential (primary) hypertension; E78.00 Pure hypercholesterolemia, unspecified; M19.90 Unspecified osteoarthritis, unspecified site; I73.9 Peripheral vascular disease, unspecified; M41.80 Other forms of scoliosis, site unspecified; Z85.3 Personal history of malignant neoplasm of breast; Z90.12 Acquired absence of left breast and nipple

== ENCOUNTER → 2019-09-02 | Outpatient (CLI) | payer MEDICARE, OTHER ==
[2019-09-02 15:26] LABS: HEMATOCRIT 39.2 % (37.0-47.0); HEMOGLOBIN 13.4 gm/dL (12.0-15.0); MCH 31.3 pg (26.0-34.0); MCHC 34.1 g/dL (28.0-37.0); MCV 91.8 fL (80.0-100.0); MPV 7.6 fl. (7.2-11.1); RBC 4.26 mil/uL (4.20-5.00); RDW-CV 14.1 % (10.5-14.5)
[2019-09-02 15:47] LABS: CALCIUM 8.8 mg/dL (8.5-10.1); CREATININE 0.9 mg/dL (0.6-1.3); MAGNESIUM 1.9 mg/dL (1.8-2.4)
== END ==
LOC: M.LAB 14:58
PROVIDERS: Internal Medicine Cardiovascular Disease
DX: I11.0 Hypertensive heart disease with heart failure (principal); I50.30 Unspecified diastolic (congestive) heart failure; Z86.73 Personal history of transient ischemic attack (TIA), and cerebral infarction without residual deficits; Z95.0 Presence of cardiac pacemaker; Z98.61 Coronary angioplasty status

== ENCOUNTER → 2019-09-14 | Outpatient (CLI) | payer MEDICARE, OTHER ==
[~2019-09-14] MED LIST changes: +NARCAN4 MG NARES
--- NOTE | 2019-09-17 09:07 | PAINCON ---
[address] [address] PAIN MANAGEMENT CONSULTATION Name: MONA MIXON Room: [facility].#: [id number] Admission: 09/14/19 Attend Phys: Marla Estrada MD Discharge: Date of : 46 Report #: [id number] THIS REPORT FOR: //name// cc: Aniya Reich MD, Katrina MD ~ THIS REPORT FOR: //name// CC: Aniya Estrada DATE OF SERVICE: 09/14/2019 CHIEF COMPLAINT: Low back pain and right hip pain. "I am going to have cataract surgery on my right eye." HISTORY: The patient is a 74-year-old female who has been followed in the pain clinic because of chronic pain. She has had a number of challenges. She has had a detached retina. She is having some difficulty seeing out of her right eye. She is scheduled in the near future to undergo cataract replacement. She has had some problem with her heart rate. She does have a pacemaker in place. She states that she has developed atrial fibrillation in addition to the need for pacemaker. Has had some episodes where her heart rate escalated to 140. She has noticed some increased back pain and discomfort. Has sought use of a back brace. She is waiting for the company to contact her and move forward. Rates her pain as a 5/10 when she is sitting. Notes that walking, standing, climbing stairs, lifting and bending can be problematic. She feels that her medications continued to be helpful. She would like to continue with their use. She is taking less of the Celebrex medication because of the new use of Eliquis as anticoagulants. ALLERGIES: No known drug allergies. CURRENT MEDICATIONS: Amitriptyline 100 mg, Arimidex 1 mg, vitamin C 1000 units, Lipitor 40 mg, total of 80 mg daily, calcium, Celebrex 200 mg, vitamin D 500 mg, fentanyl patches 225 mcg q. 72 hours, fish oil, flaxseed, Lasix 20 mg, gabapentin 600 mg 2 tablets a.m. and at night, garlic oil, ginkgo biloba 120 mg, hydrocodone 5/325 one p.o. t.i.d., Xalatan 0.5 mg eyedrops, Lopressor, multivitamins, nitroglycerin 0.4 mg sublingual p.r.n., pravastatin 20 mg, potassium 20 mEq, tramadol 50 mg t.i.d., and vitamin E 400 units. PAIN CLINIC ASSESSMENT/PQRS: 1. The patient has some arthritic changes in her knees. She suffers from spinal stenosis. She is not being treated for rheumatoid arthritis. 2. Height 5 feet 4 inches, weight 159 pounds, BMI is 27. 3. Vital signs: Blood pressure 148/101, heart rate 102, respiratory rate 16, [facility] [address] [place] [address] PAIN MANAGEMENT CONSULTATION Name: MONA MIXON Room: [facility]#: [id number] Admission: 09/14/19 Attend Phys: Marla Estrada MD Discharge: Date of : 47 Report #: [id number] room air saturation 95%, temperature 98.0. 4. Pain intensity /10. 5. Fall history: The patient has not fallen since we saw her last. 6. Blood thinner. The patient is on a blood thinning medication Eliquis for atrial fibrillation. 7. Hypertension. The patient is being treated for hypertension. 8. Risk assessment tool, low for opioid use. 9. Recreational drug use. The patient denies recreational drug use. 10. Tobacco: The patient has a 89-zuch-agzf smoking history. She is not smoking. She was vaping. Denies use of oil containing nicotine. 11. Alcohol: The patient denies use of alcoholic beverages except twice weekly when she goes to the [employer] to eat dinner. PHYSICAL EXAMINATION: GENERAL: The patient is a well-developed, well-nourished white female. Appears her stated age. She is alert and oriented x 3. Her affect is appropriate. Speech is fluent. HEENT: Normocephalic, atraumatic. Extraocular eye muscles intact. Sclerae nonicteric. The patient is wearing her glasses. Does have some discomfort in the right eye with poor vision secondary to retinal detachment, which has been surgerized. NECK: Without adenopathy or JVD. Status post carotid endarterectomy in 2013. LUNGS: Generally clear. HEART: Regular rate. No signs of fibrillation today, the patient has a pacemaker in place. ABDOMEN: Bowel sounds present. MUSCULOSKELETAL: The patient's upper extremity muscle strength judged to be 4/5 for the major muscle groups in the upper extremity. Lower extremity muscle strength 4/5 for the lower extremity. The patient walks using her cane. Complains of scoliosis without significant kyphosis. Complains of pain that radiates down to her thighs, left upper back discomfort as well. Has had left hip pain. Left hip is higher than the right. IMPRESSION: 1. Chronic pain involving the upper back and lower back areas. 2. History of breast cancer in 1998. 3. Recent retinal detachment, status post repair in 04/2019. 4. Left mastectomy in 2011. 5. Spinal fusion in 2005. 6. History of congestive heart failure. 7. Hypertension. 8. Recent onset of atrial fibrillation. 9. Anticoagulation secondary to atrial fibrillation. 10. Hypercholesterolemia. 11. Arthritis. 12. Neuropathy. [address] [address] PAIN MANAGEMENT CONSULTATION Name: MONA MIXON Room: [facility].#: [id number] Admission: 09/14/19 Attend Phys: Marla Estrada MD Discharge: Date of : 47 Report #: [id number] 13. Peripheral artery disease. 14. Carpal tunnel on the right side, status post surgery. 15. Scoliosis. RECOMMENDATIONS: We discussed treatment options with the patient. At this juncture, we will continue with her medications. A script for renewal of her medications of Duragesic have been written. She still feels that these medications are helpful. She does not have any problems with her thinking. She is able to think clearly with use of these medications. Feels that the gabapentin medication is helpful. Has continued with naloxone spray at home should she need it. A script was written at the last visit. The patient would like to pursue a brace for her back. Has noted some increased discomfort. Notes had difficulty with carrying groceries in her house because of the back pain. Feels that her pain overall is about 50% improved with her current medical regimen. She will call us, if she has any concerns with her medications. We would like to thank you for letting us participate in her care. We hope she continues to improve. <ELECTRONICALLY SIGNED> By: Marla Estrada MD 09/17/19 0907 [id number]. Gregg Estrada MD /PMT
== END ==
LOC: M.PC 09-09 08:10
DX: M54.5 Low back pain (principal); G89.29 Other chronic pain; M43.20 Fusion of spine, site unspecified; I10 Essential (primary) hypertension; E78.00 Pure hypercholesterolemia, unspecified; M19.90 Unspecified osteoarthritis, unspecified site; G62.9 Polyneuropathy, unspecified

== ENCOUNTER → 2020-04-20 | Outpatient (CLI) | payer MEDICARE, OTHER ==
[~2020-04-20] MED LIST changes: +DURAGESIC1 EAC4 TRANSDERM; +ELIQUIS2.5 MG PO; -LOPRESSOR25 PO; +LOPRESSOR50 PO; +MAGNESIUM250 M1 PO; +TIZANIDINE HCL2 M1 PO
[2020-04-20 10:28] LABS: HEMATOCRIT 37.7 % (37.0-47.0); HEMOGLOBIN 13.1 gm/dL (12.0-15.0); MCH 31.8 pg (26.0-34.0); MCHC 34.7 g/dL (28.0-37.0); MCV 91.5 fL (80.0-100.0); MPV 6.9 fl. (7.2-11.1); RBC 4.12 mil/uL (4.20-5.00); RDW-CV 14.9 % (10.5-14.5); WBC 3.5 thou/uL (4.0-11.0)
[2020-04-20 10:41] LABS: ANION GAP 3 mmol/L (7-16); BUN 11 mg/dL (7-18); CALCIUM 9.1 mg/dL (8.5-10.1); CHLORIDE 100 mmol/L (98-107); CHOLESTEROL 150 mg/dL (<200); CO2 33 mmol/L (21-32); GLUCOSE 91 mg/dL (70-99); HDL CHOLESTEROL 83 mg/dL (>40); LDL CHOLESTEROL 54 mg/dL (<100); POTASSIUM 4.3 mmol/L (3.5-5.1); SODIUM 136 mmol/L (136-145); TC:HDL 1.8 Ratio (Not establshd); TRIGLYCERIDE 67 mg/dL (<150); VLDL 13 mg/dL (<40)
[2020-04-20 10:54] LABS: SERUM ASSESSMENT Clear
--- NOTE | 2020-05-04 09:35 | PAINCON ---
[address] [address] PAIN MANAGEMENT CONSULTATION Name: MONA MIXON Room: [facility]#: [id number] Admission: 04/20/20 Attend Phys: Marla Estrada MD Discharge: Date of : 47 Report #: [id number] THIS REPORT FOR: //name// cc: Aniya Reich MD, Katrina MD ~ THIS REPORT FOR: //name// CC: Aniya HEAD MD DATE OF SERVICE: 04/20/2020 CHIEF COMPLAINT: Back and right hip pain. HISTORY: The patient is a 75-year-old female who has been followed in the pain clinic. She has a history of chronic back pain. She also has some cardiac history with history of atrial fibrillation. Continues to have pain in the low back area. Also, has pain in her right hip that radiates down into her lower back. She has not fallen since we saw her last. She is sheltering at home because of COVID-19. She was to be evaluated for back brace. This has not happened yet. ALLERGIES: No known drug allergies. CURRENT MEDICATIONS: Elavil 10 mg, Arimidex 1 mg, vitamin C 1000 units, Lipitor 40 mg, total of 80 mg daily, calcium, Celebrex 200 mg, vitamin D 500 mg, fentanyl patches q. 72 hours, fish oil, flaxseed oil, Lasix 20 mg, gabapentin 600 mg 2 tablets morning and one 200 mg at bedtime, garlic oil, ginkgo biloba 120 mg, hydrocodone 5/325 t.i.d., Xalatan 0.5 mg eyedrops, Lopressor, multivitamins, nitroglycerin 0.4 mg sublingual, pravastatin 20 mg, potassium 20 mEq, tramadol 50 mg t.i.d., and vitamin E 400 units. PAIN CLINIC ASSESSMENT AND PQRS: 1. The patient has some arthritic changes in her knees. She suffers from spinal stenosis in the low back area. 2. Height 5 feet 4 inches, weight 159 pounds, BMI is 27. 3. Vital Signs: Blood pressure 150/89, heart rate 78, respiratory rate 18, room air saturation 94%, temperature 97.1. 4. Pain intensity 10. 5. Fall history: The patient has not fallen in the last 3 months. 6. Blood thinner. The patient has used Eliquis. 7. Hypertension. The patient is being treated for hypertension. 8. Risk assessment tool, low for opioid use. 9. Recreational drug use. [place] [address] PAIN MANAGEMENT CONSULTATION Name: STEPHANIEANGELIAMONA KELLIE Room: [facility]#: [id number] Admission: 04/20/20 Attend Phys: Marla Estrada MD Discharge: Date of : 47 Report #: [id number] 10. Tobacco: The patient has a 52-hode-ckch smoking history, not smoking at this juncture. Denies vaping. 11. Alcohol. The patient rarely drinks. Does drink, when she goes to the [employer] for dinner. She has not been there since COVID- pandemic. PHYSICAL EXAMINATION: GENERAL: The patient is a well-developed, well-nourished white female. Appears her stated age. She is alert and oriented x 3. Her affect is appropriate. Speech is fluent. HEENT: Normocephalic, atraumatic. Extraocular eye muscles intact. Sclerae nonicteric. Mucous membranes. The patient is wearing glasses. Has a facial covering in place. She has had problems with her right eye because of retinal detachment, has had surgery. NECK: Without adenopathy or JVD. Carotid endarterectomy in 2013. LUNGS: Generally clear. HEART: History of atrial fibrillation. The patient has a pacemaker in place. ABDOMEN: Bowel sounds present. MUSCULOSKELETAL: Upper extremity muscle strength judged to be 4+/5 for the major muscle groups in the upper extremity. Lower extremity muscle strength 4+/5 for the major muscle groups. The patient walks with a cane. The patient still complains of some pain and discomfort associated with her scoliosis. Complains of pain that radiates down the lower portion of her back and involves the left hip. IMPRESSION: 1. Chronic pain involving the upper back and lower back areas. 2. History of breast cancer in 1998. 3. Retinal detachment repair in 04/2019. 4. Left mastectomy 2011. 5. Spinal fusion, 2005. 6. History of congestive heart failure. 7. Hypertension. 8. Atrial fibrillation history. 9. Anticoagulation because of atrial fibrillation. 10. Hypercholesterolemia. 11. Arthritis. 12. Neuropathy. 13. Peripheral artery disease. 14. Carpal tunnel history on the right side, status post surgery. 15. Scoliosis. RECOMMENDATIONS: We discussed treatment options with the patient. At this juncture, we will continue with her medications. A script for her medications of hydrocodone and fentanyl have been provided. The patient will continue with fentanyl patches 25 mcg every 72 hours. She also will continue with amitriptyline 10 mg 2 tablets at bedtime. She will continue with gabapentin [address] [place] [address] PAIN MANAGEMENT CONSULTATION Name: MONA MIXON Room: [facility]#: [id number] Admission: 04/20/20 Attend Phys: Marla Estrada MD Discharge: Date of : 47 Report #: [id number] mg 1 p.o. t.i.d. She takes one tablet a.m., 2 tablets at bedtime, hydrocodone 5/325 tablets to take b.i.d. to t.i.d. for pain control. Tizanidine 2 mg for muscle spasm, the patient has been provided with Narcan nasal spray should the need arise. We would like to thank you for letting us participate in her care. We hope she continues to improve. <ELECTRONICALLY SIGNED> By: Marla Estrada MD 05/04/20 0935 [id number]. Gregg Estrada MD /[facility]
== END ==
LOC: M.PC 08:50
PROVIDERS: ATTEND Anesthesiology Pain Medicine
DX: M54.9 Dorsalgia, unspecified (principal); M25.551 Pain in right hip; I48.19 Other persistent atrial fibrillation; E78.5 Hyperlipidemia, unspecified; I10 Essential (primary) hypertension; I48.91 Unspecified atrial fibrillation; E78.00 Pure hypercholesterolemia, unspecified; M19.90 Unspecified osteoarthritis, unspecified site; G62.9 Polyneuropathy, unspecified; I73.9 Peripheral vascular disease, unspecified; M41.9 Scoliosis, unspecified; G89.29 Other chronic pain; Z85.3 Personal history of malignant neoplasm of breast; Z95.0 Presence of cardiac pacemaker; Z86.73 Personal history of transient ischemic attack (TIA), and cerebral infarction without residual deficits; Z90.12 Acquired absence of left breast and nipple; Z86.79 Personal history of other diseases of the circulatory system; Z79.01 Long term (current) use of anticoagulants; Z87.39 Personal history of other diseases of the musculoskeletal system and connective tissue

== ENCOUNTER → 2020-06-15 | Outpatient (CLI) | payer MEDICARE, OTHER | LOC: M.PC 07:35 | PROVIDERS: ATTEND Anesthesiology Pain Medicine | DX: G89.29 Other chronic pain (principal); M54.5 Low back pain; I10 Essential (primary) hypertension; I25.10 Atherosclerotic heart disease of native coronary artery without angina pectoris; E78.5 Hyperlipidemia, unspecified; I73.9 Peripheral vascular disease, unspecified; I11.0 Hypertensive heart disease with heart failure; I50.9 Heart failure, unspecified; Z98.1 Arthrodesis status; I48.91 Unspecified atrial fibrillation; E78.00 Pure hypercholesterolemia, unspecified; M19.90 Unspecified osteoarthritis, unspecified site; G62.9 Polyneuropathy, unspecified; M41.9 Scoliosis, unspecified; Z90.12 Acquired absence of left breast and nipple; Z79.891 Long term (current) use of opiate analgesic; Z79.899 Other long term (current) drug therapy; Z85.3 Personal history of malignant neoplasm of breast ==

== ENCOUNTER → 2020-08-10 | Outpatient (CLI) | payer MEDICARE, OTHER | LOC: M.PC 07:46 | PROVIDERS: ATTEND Anesthesiology Pain Medicine | DX: M54.5 Low back pain (principal); G89.29 Other chronic pain; I10 Essential (primary) hypertension; I48.91 Unspecified atrial fibrillation; E78.00 Pure hypercholesterolemia, unspecified; M19.90 Unspecified osteoarthritis, unspecified site; G62.9 Polyneuropathy, unspecified; I73.9 Peripheral vascular disease, unspecified; M41.9 Scoliosis, unspecified; I50.9 Heart failure, unspecified; Z79.01 Long term (current) use of anticoagulants; Z85.3 Personal history of malignant neoplasm of breast; Z90.12 Acquired absence of left breast and nipple; Z79.899 Other long term (current) drug therapy ==

== ENCOUNTER → 2020-10-05 | Outpatient (CLI) | payer MEDICARE, OTHER | LOC: M.PC 07:49 | PROVIDERS: ATTEND Anesthesiology Pain Medicine | DX: M54.5 Low back pain (principal); G89.29 Other chronic pain; I10 Essential (primary) hypertension; E78.00 Pure hypercholesterolemia, unspecified; M19.90 Unspecified osteoarthritis, unspecified site; G62.9 Polyneuropathy, unspecified; I73.9 Peripheral vascular disease, unspecified; Z98.890 Other specified postprocedural states; Z90.12 Acquired absence of left breast and nipple; Z85.3 Personal history of malignant neoplasm of breast; Z98.1 Arthrodesis status; Z79.01 Long term (current) use of anticoagulants; Z86.79 Personal history of other diseases of the circulatory system; Z87.891 Personal history of nicotine dependence; Z88.8 Allergy status to other drugs, medicaments and biological substances; Z79.899 Other long term (current) drug therapy ==

== ENCOUNTER → 2020-11-30 | Outpatient (CLI) | payer MEDICARE, OTHER | LOC: M.PC 08:00 | PROVIDERS: ATTEND Anesthesiology Pain Medicine | DX: G89.29 Other chronic pain (principal); M54.5 Low back pain; I11.0 Hypertensive heart disease with heart failure; I50.9 Heart failure, unspecified; I48.91 Unspecified atrial fibrillation; E78.00 Pure hypercholesterolemia, unspecified; M19.90 Unspecified osteoarthritis, unspecified site; G62.9 Polyneuropathy, unspecified; I73.9 Peripheral vascular disease, unspecified; M41.9 Scoliosis, unspecified; Z90.12 Acquired absence of left breast and nipple; Z68.27 Body mass index [BMI] 27.0-27.9, adult; Z98.1 Arthrodesis status; Z98.890 Other specified postprocedural states; Z95.5 Presence of coronary angioplasty implant and graft; Z79.01 Long term (current) use of anticoagulants; Z79.891 Long term (current) use of opiate analgesic; Z79.899 Other long term (current) drug therapy; Z85.3 Personal history of malignant neoplasm of breast ==

== ENCOUNTER → 2021-01-25 | Outpatient (CLI) | payer MEDICARE, OTHER | LOC: M.PC 07:40 | PROVIDERS: ATTEND Anesthesiology Pain Medicine | DX: G89.29 Other chronic pain (principal); I10 Essential (primary) hypertension; E78.00 Pure hypercholesterolemia, unspecified; G62.9 Polyneuropathy, unspecified; I73.9 Peripheral vascular disease, unspecified; M19.90 Unspecified osteoarthritis, unspecified site; I48.91 Unspecified atrial fibrillation; Z85.3 Personal history of malignant neoplasm of breast ==

== ENCOUNTER → 2021-03-22 | Outpatient (CLI) | payer MEDICARE, OTHER | LOC: M.PC 07:53 | PROVIDERS: ATTEND Anesthesiology Pain Medicine | DX: M54.5 Low back pain (principal); G89.29 Other chronic pain; I48.91 Unspecified atrial fibrillation; I10 Essential (primary) hypertension; E78.00 Pure hypercholesterolemia, unspecified; M19.90 Unspecified osteoarthritis, unspecified site; G62.9 Polyneuropathy, unspecified; I73.9 Peripheral vascular disease, unspecified; M41.9 Scoliosis, unspecified; G56.01 Carpal tunnel syndrome, right upper limb; M54.9 Dorsalgia, unspecified ==

== ENCOUNTER → 2021-05-17 | Outpatient (CLI) | payer MEDICARE, OTHER ==
[~2021-05-17] MED LIST changes: +FENTANYL1 EACH TRANSDERM; -LOPRESSOR50 PO; +TIMOLOL MALEATE5 M2 OPHTHALMIC; +TOPROL XL50 MG PO
== END ==
LOC: M.PC 07:48
PROVIDERS: ATTEND Anesthesiology Pain Medicine
DX: G89.29 Other chronic pain (principal); M54.59 Other low back pain; I48.91 Unspecified atrial fibrillation; E78.00 Pure hypercholesterolemia, unspecified; M19.90 Unspecified osteoarthritis, unspecified site; G62.9 Polyneuropathy, unspecified; I73.9 Peripheral vascular disease, unspecified; M41.9 Scoliosis, unspecified; I11.0 Hypertensive heart disease with heart failure; I50.9 Heart failure, unspecified; Z82.3 Family history of stroke; Z90.12 Acquired absence of left breast and nipple; Z79.899 Other long term (current) drug therapy

== ENCOUNTER → 2021-07-12 | Outpatient (CLI) | payer MEDICARE, OTHER | LOC: M.PC 07:56 | PROVIDERS: ATTEND Anesthesiology Pain Medicine | DX: G89.29 Other chronic pain (principal); M54.50 Low back pain, unspecified; I48.91 Unspecified atrial fibrillation; E78.00 Pure hypercholesterolemia, unspecified; M19.90 Unspecified osteoarthritis, unspecified site; I73.9 Peripheral vascular disease, unspecified; M41.9 Scoliosis, unspecified; I11.0 Hypertensive heart disease with heart failure; I50.9 Heart failure, unspecified; Z85.3 Personal history of malignant neoplasm of breast; Z79.899 Other long term (current) drug therapy ==

== ENCOUNTER → 2021-09-06 | Outpatient (CLI) | payer MEDICARE, OTHER | LOC: M.PC 07:48 | PROVIDERS: ATTEND Anesthesiology Pain Medicine | DX: G89.29 Other chronic pain (principal); M54.50 Low back pain, unspecified; I10 Essential (primary) hypertension; I48.91 Unspecified atrial fibrillation; E78.00 Pure hypercholesterolemia, unspecified; M19.90 Unspecified osteoarthritis, unspecified site; I73.9 Peripheral vascular disease, unspecified; M41.9 Scoliosis, unspecified; F17.200 Nicotine dependence, unspecified, uncomplicated; Z79.899 Other long term (current) drug therapy ==